=== PATIENT | male | born 1930 | race Caucasian/White ===

== ENCOUNTER 2017-10-04 14:50 | Emergency (ER) | payer OTHER ==
[~2017-10-04] VITALS: Ht 177.8 cm; Wt 84.8 kg
[2017-10-04] MEDS ORDERED: NORCO 5-325 TA1 EACH PO (15:05)
[2017-10-04] MEDS ORDERED: TYLENOL325 MG PO (15:06)
[2017-10-04 15:23] LABS: ABSOLUTE BASOPHILS 0.1 thou/uL (0.0-0.2); ABSOLUTE LYMPHOCYTES 1.1 thou/uL (0.8-5.3); ABSOLUTE MONOCYTES 0.9 thou/uL (0.0-1.2); ABSOLUTE NEUTROPHILS 7.8 thou/uL (1.6-8.1); BASOPHILS 0.6 %; EOSINOPHILS 0.1 %; HEMATOCRIT 43.7 % (42.0-52.0); HEMOGLOBIN 14.9 gm/dL (14.0-18.0); LYMPHOCYTES 10.9 %; MCH 28.3 pg (26.0-34.0); MCHC 34.1 g/dL (28.0-37.0); MPV 8.3 fl. (7.2-11.1); NUCLEATED RBCS 0 /100WBC; PLATELET COUNT* 248 thou/uL (150-400); POLYS 79.4 %; RBC 5.26 mil/uL (4.50-6.00); RDW-CV 14.5 % (10.5-14.5); WBC 9.8 thou/uL (4.0-11.0)
[2017-10-04 15:33] LABS: URINE BILIRUBIN NEGATIVE (Negative); URINE BLOOD NEGATIVE (Negative); URINE CLARITY CLEAR; URINE COLOR YELLOW; URINE GLUCOSE-RANDOM 3+ (Negative); URINE KETONES NEGATIVE (Negative); URINE LEUKOCYTES-REFLEX NEGATIVE (Negative); URINE NITRITE-REFLEX NEGATIVE (Negative); URINE PROTEIN 2+ (Negative); URINE SPECIFIC GRAVITY 1.025 (1.005-1.030); URINE UROBILINOGEN 0.2 E.U./dl (0.2-1.0)
[2017-10-04 15:53] LABS: BACTERIA-REFLEX None Seen /HPF (None Seen); CRYSTALS None Seen /LPF (None Seen); HYALINE CASTS 0-3 Few /LPF (None Seen); MUCUS None Seen strn/LPF (None Seen); SQUAMOUS NONE SEEN /LPF (0-3); URINE RBC None Seen /HPF (0-2)
[2017-10-04 15:54] LABS: URINE WBC-REFLEX 0-5 Rare /HPF (0-5)
[2017-10-04 15:59] LABS: CALCIUM 8.7 mg/dL (8.5-10.1); CREATININE 1.1 mg/dL (0.6-1.3); POTASSIUM 3.6 mmol/L (3.5-5.1)
[2017-10-04 16:03] LABS: ALBUMIN 3.5 g/dL (3.4-5.0); TOTAL BILIRUBIN 0.4 mg/dL (<0.1-1.0)
[2017-10-04 18:03] VITALS: BP 196/91
== END 2017-10-04 18:11 | disposition short-term general hospital (02) ==
LOC: M.ERS 14:50
PROVIDERS: Nurse Practitioner Family
DX: R20.0 Anesthesia of skin (principal); R53.1 Weakness; G89.29 Other chronic pain; M54.5 Low back pain; E11.9 Type 2 diabetes mellitus without complications; I10 Essential (primary) hypertension; Z90.49 Acquired absence of other specified parts of digestive tract

== ENCOUNTER 2019-02-06 10:09 | Emergency (ER) | payer OTHER ==
[~2019-02-06] VITALS: Ht 177.8 cm; Wt 97.5 kg
[~2019-02-06 10:09] MED LIST: NORCO 5-325 TA1 EACH PO; TYLENOL325 MG PO
[2019-02-06] MEDS ORDERED: NOVOLOG FL100 UNIT/M SUBQ (10:22)
[2019-02-06] MEDS ORDERED: LANTUS SOL100 UNIT/1 SUBQ (10:22)
[2019-02-06] MEDS ORDERED: SPIRONOLACT/HCT1 TA1 PO (10:22)
[2019-02-06] MEDS ORDERED: GABAPENTIN100 MG PO (10:23)
[2019-02-06] MEDS ORDERED: NEURONTIN300 MG PO (10:23)
[2019-02-06 11:17] LABS: URINE BILIRUBIN NEGATIVE (Negative); URINE BLOOD NEGATIVE (Negative); URINE CLARITY CLEAR; URINE COLOR YELLOW; URINE GLUCOSE-RANDOM 3+ (Negative); URINE KETONES NEGATIVE (Negative); URINE LEUKOCYTES-REFLEX NEGATIVE (Negative); URINE NITRITE-REFLEX NEGATIVE (Negative); URINE PROTEIN NEGATIVE (Negative); URINE SPECIFIC GRAVITY >= 1.030 (1.005-1.030); URINE UROBILINOGEN 0.2 E.U./dl (0.2-1.0)
[2019-02-06 11:20] LABS: ABSOLUTE BASOPHILS 0.1 thou/uL (0.0-0.2); ABSOLUTE EOSINOPHILS 0.1 thou/uL (0.0-0.7); ABSOLUTE LYMPHOCYTES 1.7 thou/uL (0.8-5.3); ABSOLUTE MONOCYTES 0.6 thou/uL (0.0-1.2); ABSOLUTE NEUTROPHILS 5.1 thou/uL (1.6-8.1); BASOPHILS 0.7 %; EOSINOPHILS 1.8 %; HEMATOCRIT 44.7 % (42.0-52.0); HEMOGLOBIN 15.5 gm/dL (14.0-18.0); LYMPHOCYTES 22.1 %; MCH 28.5 pg (26.0-34.0); MCHC 34.8 g/dL (28.0-37.0); MCV 81.8 fL (80.0-100.0); MONOCYTES 7.4 %; MPV 7.8 fl. (7.2-11.1); NUCLEATED RBCS 0 /100WBC; PLATELET COUNT* 286 thou/uL (150-400); RBC 5.46 mil/uL (4.50-6.00); RDW-CV 14.8 % (10.5-14.5); WBC 7.5 thou/uL (4.0-11.0)
[2019-02-06 11:38] LABS: CREATININE 1.2 mg/dL (0.6-1.3); POTASSIUM 3.9 mmol/L (3.5-5.1)
[2019-02-06 11:42] LABS: ALBUMIN 3.6 g/dL (3.4-5.0); TOTAL BILIRUBIN 0.5 mg/dL (<0.1-1.0); TOTAL PROTEIN 7.6 g/dL (6.4-8.2)
--- NOTE | 2019-02-06 14:16 | EKG ---
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
[2019-02-06] MEDS ORDERED: MIRALAX119 GM PO (14:28)
[2019-02-06] MEDS ORDERED: COLACE100 MG PO (14:28)
[2019-02-06] MEDS ORDERED: FLEET ENEMA133 ML RECTAL (14:33)
[2019-02-06 14:42] VITALS: BP 146/68
== END 2019-02-06 14:43 | disposition home or self-care (01) ==
LOC: M.ERS 10:09
PROVIDERS: Nurse Practitioner Family
DX: K56.41 Fecal impaction (principal); I10 Essential (primary) hypertension; E11.40 Type 2 diabetes mellitus with diabetic neuropathy, unspecified; M54.9 Dorsalgia, unspecified; G89.29 Other chronic pain; Z90.49 Acquired absence of other specified parts of digestive tract; Z96.651 Presence of right artificial knee joint

== ENCOUNTER 2019-10-31 16:17 | Observation (INO) | payer OTHER ==
[~2019-10-31] VITALS: Ht 177.8 cm; Wt 86.6 kg
--- NOTE | ~2019-10-31 | EMS ---
[facility] [address] [place] [address] EMS Patient Care Report Name: MINE QUESADA Room: [address] Marci#: [id number] Admission: 10/31/19 Attend Phys: Valentin Garcia Discharge: Date of : 32 Report #: [id number] THIS REPORT FOR: //name// Report Transmitted: 10/31/2019 18:53 EMS Care Summary [facility] Incident 20-0735 @ 10/31/2019 15:27 Incident Location [address] [place] [address] Patient HOMER SANGITA Male, 89 Years 1930 Patient Address [address] [place] [address] Patient History Dementia,Neuropathy,Type 1 Diabetes, Patient Allergies No known allergies, Patient Medications Gabapentin, Metformin, Spironolactone, Novolog, Lantus, Chief Complaint Constipation/Pain Disposition Transported No Lights/[place] Dispatch Reason Sick Person Transported To [facility] Narrative Engine 2 and Med 1 were dispatched for a [age] year-old male c/o constipation and possible sepsis. Upon arrival the patient's son in law met us at the door. He reported that it is unknown how long the patient has been in this condition and that the patient has dementia. He believes he is having pain [address] [address] EMS Patient Care Report Name: MINE QUESADA Room: [address] Marci#: [id number] Admission: 10/31/19 Attend Phys: Valentin Garcia Discharge: Date of : 32 Report #: [id number] due to constipation. He led us into the house. The house smelled like urine, there was clutter on the counters. The patient was in the back bedroom sitting on the edge of his bed and was moaning in pain. I asked the patient where are you hurting at? The patient yelled," My asshole!" I palpated the patient's abdomen it was mildly distended in the lower quadrants, I palpated his back and it was not tender. Patient had a strong, rapid, regular pulse and felt febrile to the touch. Patient's vitals were obtained and his temperature was 101.0 degrees Fahrenheit. Patient's medication list was obtained from family. Patient was assisted to the stretcher and secured via the seatbelts and moved into the ambulance without incident. In the ambulance, patient was placed on the radiation monitor and a 12 lead EKG was obtained. It shown NSR with no ectopy noted. A Saline Lock was obtained in the patient's left AC with a 20 GA IV catheter. A blood glucose was obtained with a reading of 255 mg/dL. Patient was very anxious and agitated and was moving all around c/o pain. Patient was given 100 mcg of Fentanyl via IV to help with the pain. The medication eased the patient's pain some and calmed him down. Hospital report was given via radio with no questions or orders received or requested. Med 1 arrived at the hospital. Patient was moved into the ER via stretcher without incident to room 16. Patient care was transferred to ER staff. Med 1 returned back into service. [id number] KShook Initial Vitals @16:02R: 20,GCS: 13,Glucose: 232, @15:46P: 94,BP: 148/70,SpO2: 91, @15:47 @16:03P: 88, @16:08P: 85, @16:09P: 87,BP: 145/65,SpO2: 92, @15:48P: 111, @15:57P: 94,BP: 108/63, @15:53P: 99, @16:08P: 87,BP: 152/77,SpO2: 90, @15:58P: 90, Assessments @15:50MENTAL:Confused,Person Oriented,Place Oriented,SKIN:Hot,HEENT:Head/Face: Drainage,LUNG SOUNDS:ABDOMEN:PELVIS//GI:Pelvis GUOther,EXTREMITIES:Left Arm: No Abnormalities,Right Arm: No Abnormalities,Left Leg: No Abnormalities,Right Leg: No Abnormalities,PULSE:Brachial: 3+ Bounding,NEURO:No Abnormalities, [place] [address] EMS Patient Care Report Name: MINE QUESADA Room: [address] Cielo Covarrubias#: [id number] Admission: 10/31/19 Attend Phys: Valentin Garcia Discharge: Date of : 34 Report #: [id number] Impression Hypovolemia Procedures @15:50Normal Saline (.9% NaCl) 10cc (20 ga) Site: Antecubital-LeftResponse: UnchangedSucceeded@15:53Fentanyl - 100 Micrograms (mcg) - Intravenous (IV)Response: Improved@15:4712-Lead ECG Timeline 15:27,Call Received 15:27,Dispatched 15:27,En Route 15:32,On Scene 15:33,At Patient 15:46,BP: 148/70 M,PULSE: 94,RR: R,SPO2: 91 Ox,ETCO2: ,BG: ,PAIN: ,GCS: , 15:47,12-Lead ECG, 15:47,BP: / M,PULSE: ,RR: R,SPO2: Ox,ETCO2: ,BG: ,PAIN: ,GCS: , 15:48,BP: / M,PULSE: 111,RR: R,SPO2: Ox,ETCO2: ,BG: ,PAIN: ,GCS: , 15:50,Normal Saline (.9% NaCl) 10cc 20 ga Site: Antecubital-Left,Response: UnchangedSucceeded, 15:53,Depart Scene 15:53,Fentanyl - 100 Micrograms (mcg) - Intravenous (IV),Response: Improved 15:53,BP: / M,PULSE: 99,RR: R,SPO2: Ox,ETCO2: ,BG: ,PAIN: ,GCS: , 15:57,BP: 108/63 M,PULSE: 94,RR: R,SPO2: Ox,ETCO2: ,BG: ,PAIN: ,GCS: , 15:58,BP: / M,PULSE: 90,RR: R,SPO2: Ox,ETCO2: ,BG: ,PAIN: ,GCS: , 16:02,BP: / M,PULSE: ,RR: 20 R,SPO2: Ox,ETCO2: ,B,PAIN: ,GCS: 13, 16:03,BP: / M,PULSE: 88,RR: R,SPO2: Ox,ETCO2: ,BG: ,PAIN: ,GCS: , 16:08,BP: / M,PULSE: 85,RR: R,SPO2: Ox,ETCO2: ,BG: ,PAIN: ,GCS: , 16:08,BP: 152/77 M,PULSE: 87,RR: R,SPO2: 90 Ox,ETCO2: ,BG: ,PAIN: ,GCS: , 16:09,BP: 145/65 M,PULSE: 87,RR: R,SPO2: 92 Ox,ETCO2: ,BG: ,PAIN: ,GCS: , 16:14,At Destination 16:14,Call Closed 19:46,In District Disclaimer v1.1 Copyright 2020 [employer] This EMS Care Summary contains data elements from the applicable legal record (which may be displayed differently). It is designed to provide pertinent information for the following purposes: continuity of care, clinical quality, and state data reporting. The complete legal record is available to ED staff and administrators of the receiving hospital in ES's Patient Tracker. All data is provided "as is."
[~2019-10-31 16:17] MED LIST changes: +COLACE100 MG PO; +FLEET ENEMA133 ML RECTAL; +GABAPENTIN100 MG PO; +LANTUS SOL100 UNIT/1 SUBQ; +MIRALAX119 GM PO; +NEURONTIN300 MG PO; +NOVOLOG FL100 UNIT/M SUBQ; +SPIRONOLACT/HCT1 TA1 PO
[2019-10-31 16:22] VITALS: BP 146/62
[2019-10-31 17:22] LABS: ABSOLUTE BASOPHILS 0.1 thou/uL (0.0-0.2); ABSOLUTE EOSINOPHILS 0.2 thou/uL (0.0-0.7); ABSOLUTE LYMPHOCYTES 2.3 thou/uL (0.8-5.3); ABSOLUTE MONOCYTES 0.8 thou/uL (0.0-1.2); ABSOLUTE NEUTROPHILS 9.2 thou/uL (1.6-8.1); BASOPHILS 0.7 %; EOSINOPHILS 1.8 %; HEMATOCRIT 46.7 % (42.0-52.0); HEMOGLOBIN 15.8 gm/dL (14.0-18.0); LYMPHOCYTES 18.4 %; MCH 27.7 pg (26.0-34.0); MCHC 33.9 g/dL (28.0-37.0); MCV 81.7 fL (80.0-100.0); MONOCYTES 6.3 %; MPV 8.2 fl. (7.2-11.1); NUCLEATED RBCS 0 /100WBC; POLYS 72.8 %; RBC 5.71 mil/uL (4.50-6.00); RDW-CV 16.1 % (10.5-14.5); WBC 12.6 thou/uL (4.0-11.0)
[2019-10-31 17:32] LABS: CALCIUM 8.9 mg/dL (8.5-10.1); CREATININE 1.2 mg/dL (0.6-1.3); POTASSIUM 3.6 mmol/L (3.5-5.1)
[2019-10-31 17:37] LABS: ALBUMIN 3.4 g/dL (3.4-5.0); TOTAL BILIRUBIN 0.4 mg/dL (<0.1-1.0); TOTAL PROTEIN 7.5 g/dL (6.4-8.2)
[2019-10-31 17:58] LABS: PLATELET COUNT* 200 thou/uL (150-400)
[2019-10-31 20:02] VITALS: BP 127/43
[2019-10-31 20:20] VITALS: BP 164/66
[2019-11-01 00:53] VITALS: BP 164/66
[2019-11-01 07:40] VITALS: BP 131/56
--- NOTE | 2019-11-01 11:04 | EKG ---
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: CCD : 1930 Requested By: Yvetet Mcginnis Order Number: [id number] Akila MD: Zheng Trujillo Measurements Intervals [place] Rate: 81 P: 42 AR: 192 QRS: 13 QRSD: 86 T: 63 QT: 395 QTc: 459 Interpretive Statements Sinus rhythm Abnormal R-wave progression, early transition Compared to ECG 02/06/2019 11:26:32 No significant changes Electronically Signed On 11-01-2019 11:04:14 CDT by Zheng Trujillo [email or web address] <ELECTRONICALLY SIGNED> By: Zheng Trujillo MD, [facility] 11/01/19 1104 1627 1627 Zheng Trujillo MD, [facility] /EPI
[2019-11-01] MEDS ORDERED: MIRALAX17 GM PO (12:41)
[2019-11-01 14:03] VITALS: BP 131/56
== END 2019-11-01 14:38 | disposition home or self-care (01) ==
LOC: M.ERS 16:17 → M.TBA-ER 18:55 → M.ORTHSURG 18:55
PROVIDERS: Personal Emergency Response Attendant; ADMIT Internal Medicine; ATTEND Internal Medicine
DX: K62.5 Hemorrhage of anus and rectum (principal); K59.00 Constipation, unspecified; I10 Essential (primary) hypertension; H40.9 Unspecified glaucoma; L98.499 Non-pressure chronic ulcer of skin of other sites with unspecified severity; M54.9 Dorsalgia, unspecified; G89.29 Other chronic pain; E11.40 Type 2 diabetes mellitus with diabetic neuropathy, unspecified; K64.9 Unspecified hemorrhoids; Z87.891 Personal history of nicotine dependence; Z98.890 Other specified postprocedural states; Z79.4 Long term (current) use of insulin; Z79.899 Other long term (current) drug therapy; Z20.828 Contact with and (suspected) exposure to other viral communicable diseases

== ENCOUNTER 2020-05-29 12:52 | Emergency (ER) | payer OTHER ==
[~2020-05-29] VITALS: Ht 182.9 cm; Wt 108.9 kg
[~2020-05-29 12:52] MED LIST changes: +MIRALAX17 GM PO
[2020-05-29] MEDS ORDERED: KEFLEX500 M1 PO (13:31)
[2020-05-29] MEDS ORDERED: BACTRIM DS TAB1 EACH PO (13:31)
[2020-05-29 13:44] LABS: ABSOLUTE BASOPHILS 0.1 thou/uL (0.0-0.2); ABSOLUTE EOSINOPHILS 0.2 thou/uL (0.0-0.7); ABSOLUTE LYMPHOCYTES 1.9 thou/uL (0.8-5.3); ABSOLUTE MONOCYTES 0.5 thou/uL (0.0-1.2); ABSOLUTE NEUTROPHILS 4.8 thou/uL (1.6-8.1); BASOPHILS 1.2 %; EOSINOPHILS 2.3 %; HEMATOCRIT 43.9 % (42.0-52.0); HEMOGLOBIN 14.6 gm/dL (14.0-18.0); LYMPHOCYTES 24.9 %; MCH 27.5 pg (26.0-34.0); MCHC 33.3 g/dL (28.0-37.0); MCV 82.6 fL (80.0-100.0); MPV 7.3 fl. (7.2-11.1); NUCLEATED RBCS 0 /100WBC; PLATELET COUNT* 307 thou/uL (150-400); POLYS 64.6 %; RBC 5.31 mil/uL (4.50-6.00); RDW-CV 15.4 % (10.5-14.5); WBC 7.5 thou/uL (4.0-11.0)
[2020-05-29 13:53] LABS: CALCIUM 9.3 mg/dL (8.5-10.1); CREATININE 1.1 mg/dL (0.6-1.3); POTASSIUM 3.6 mmol/L (3.5-5.1)
[2020-05-29 13:58] LABS: ALBUMIN 3.4 g/dL (3.4-5.0); TOTAL BILIRUBIN 0.5 mg/dL (<0.1-1.0); TOTAL PROTEIN 7.4 g/dL (6.4-8.2)
[2020-05-29 14:27] VITALS: BP 131/61
== END 2020-05-29 14:28 | disposition home or self-care (01) ==
LOC: M.ERS 12:52
PROVIDERS: Family Medicine
DX: E11.621 Type 2 diabetes mellitus with foot ulcer (principal); E11.40 Type 2 diabetes mellitus with diabetic neuropathy, unspecified; L03.116 Cellulitis of left lower limb; E11.9 Type 2 diabetes mellitus without complications; I10 Essential (primary) hypertension; G89.29 Other chronic pain; Z79.4 Long term (current) use of insulin

== ENCOUNTER → 2020-06-03 | Outpatient (CLI) | payer OTHER ==
[~2020-06-03] MED LIST changes: +BACTRIM DS TAB1 EACH PO; +KEFLEX500 M1 PO
== END ==
LOC: M.WC 07:54
PROVIDERS: ATTEND Surgery
DX: E11.621 Type 2 diabetes mellitus with foot ulcer (principal); L97.522 Non-pressure chronic ulcer of other part of left foot with fat layer exposed; E11.43 Type 2 diabetes mellitus with diabetic autonomic (poly)neuropathy; R62.7 Adult failure to thrive; I10 Essential (primary) hypertension; E11.39 Type 2 diabetes mellitus with other diabetic ophthalmic complication; H42 Glaucoma in diseases classified elsewhere; G89.29 Other chronic pain; F41.9 Anxiety disorder, unspecified; Z90.49 Acquired absence of other specified parts of digestive tract; Z96.651 Presence of right artificial knee joint; Z79.4 Long term (current) use of insulin

== ENCOUNTER → 2020-06-09 | Outpatient (CLI) | payer OTHER | LOC: M.ULTRA 12:57 | PROVIDERS: ATTEND Surgery | DX: E11.621 Type 2 diabetes mellitus with foot ulcer (principal); E11.51 Type 2 diabetes mellitus with diabetic peripheral angiopathy without gangrene ==

== ENCOUNTER → 2020-06-10 | Outpatient (CLI) | payer OTHER | LOC: M.WC 08:42 | PROVIDERS: ATTEND Surgery | DX: E11.621 Type 2 diabetes mellitus with foot ulcer (principal); L97.522 Non-pressure chronic ulcer of other part of left foot with fat layer exposed; E11.43 Type 2 diabetes mellitus with diabetic autonomic (poly)neuropathy; E11.39 Type 2 diabetes mellitus with other diabetic ophthalmic complication; H42 Glaucoma in diseases classified elsewhere; R62.7 Adult failure to thrive; G89.29 Other chronic pain; I10 Essential (primary) hypertension; F41.9 Anxiety disorder, unspecified; Z79.4 Long term (current) use of insulin ==

== ENCOUNTER → 2020-06-17 | Outpatient (CLI) | payer OTHER | LOC: M.WC 08:38 | PROVIDERS: ATTEND Surgery | DX: E11.621 Type 2 diabetes mellitus with foot ulcer (principal); L97.522 Non-pressure chronic ulcer of other part of left foot with fat layer exposed; E11.43 Type 2 diabetes mellitus with diabetic autonomic (poly)neuropathy; E11.39 Type 2 diabetes mellitus with other diabetic ophthalmic complication; H42 Glaucoma in diseases classified elsewhere; R62.7 Adult failure to thrive; G89.29 Other chronic pain; I10 Essential (primary) hypertension; F41.9 Anxiety disorder, unspecified; Z79.4 Long term (current) use of insulin ==

== ENCOUNTER → 2020-06-24 | Outpatient (CLI) | payer OTHER | LOC: M.WC 08:54 | PROVIDERS: ATTEND Family Medicine | DX: E11.621 Type 2 diabetes mellitus with foot ulcer (principal); L97.522 Non-pressure chronic ulcer of other part of left foot with fat layer exposed; E11.43 Type 2 diabetes mellitus with diabetic autonomic (poly)neuropathy; E11.39 Type 2 diabetes mellitus with other diabetic ophthalmic complication; H42 Glaucoma in diseases classified elsewhere; R62.7 Adult failure to thrive; G89.29 Other chronic pain; I10 Essential (primary) hypertension; F41.9 Anxiety disorder, unspecified; Z79.4 Long term (current) use of insulin ==

== ENCOUNTER → 2020-07-01 | Outpatient (CLI) | payer OTHER | LOC: M.WC 09:30 | PROVIDERS: ATTEND Surgery | DX: E11.621 Type 2 diabetes mellitus with foot ulcer (principal); L97.522 Non-pressure chronic ulcer of other part of left foot with fat layer exposed; E11.43 Type 2 diabetes mellitus with diabetic autonomic (poly)neuropathy; E11.39 Type 2 diabetes mellitus with other diabetic ophthalmic complication; H42 Glaucoma in diseases classified elsewhere; R62.7 Adult failure to thrive; G89.29 Other chronic pain; I10 Essential (primary) hypertension; F41.9 Anxiety disorder, unspecified; Z79.4 Long term (current) use of insulin ==

== ENCOUNTER 2020-07-08 14:48 | Inpatient (IN) | payer OTHER ==
[~2020-07-08] VITALS: Ht 177.8 cm; Wt 92.1 kg
[2020-07-08 15:05] VITALS: BP 152/130
[2020-07-08] MEDS ORDERED: COLACE100 MG PO (15:09)
[2020-07-08] MEDS ORDERED: MIRALAX119 GM PO (15:09)
[2020-07-08] MEDS ORDERED: METFORMIN HCL500 M3 PO (15:10)
[2020-07-08 15:43] LABS: ABSOLUTE BASOPHILS 0.1 thou/uL (0.0-0.2); ABSOLUTE LYMPHOCYTES 1.2 thou/uL (0.8-5.3); ABSOLUTE MONOCYTES 0.7 thou/uL (0.0-1.2); ABSOLUTE NEUTROPHILS 9.5 thou/uL (1.6-8.1); BASOPHILS 0.5 %; EOSINOPHILS 0.3 %; HEMATOCRIT 44.9 % (42.0-52.0); LYMPHOCYTES 10.6 %; MCH 27.5 pg (26.0-34.0); MCHC 33.5 g/dL (28.0-37.0); MCV 82.2 fL (80.0-100.0); MONOCYTES 6.2 %; MPV 7.3 fl. (7.2-11.1); NUCLEATED RBCS 0 /100WBC; PLATELET COUNT* 397 thou/uL (150-400); POLYS 82.4 %; RBC 5.46 mil/uL (4.50-6.00); RDW-CV 15.9 % (10.5-14.5); WBC 11.5 thou/uL (4.0-11.0)
[2020-07-08 15:52] LABS: CALCIUM 9.3 mg/dL (8.5-10.1); CREATININE 1.2 mg/dL (0.6-1.3); POTASSIUM 3.8 mmol/L (3.5-5.1)
[2020-07-08 15:56] LABS: APTT 28.2 Seconds (25.0-31.3); PROTIME 10.9 Seconds (9.20-11.50)
[2020-07-08 15:57] LABS: ALBUMIN 3.2 g/dL (3.4-5.0); TOTAL BILIRUBIN 0.5 mg/dL (<0.1-1.0); TOTAL PROTEIN 8.2 g/dL (6.4-8.2)
[2020-07-08 18:21] VITALS: BP 155/69
[2020-07-08 20:00] VITALS: BP 158/56
[2020-07-09 04:00] VITALS: BP 105/73
[2020-07-09 04:53] LABS: HEMATOCRIT 40.3 % (42.0-52.0); HEMOGLOBIN 13.5 gm/dL (14.0-18.0); MCH 27.4 pg (26.0-34.0); MCHC 33.5 g/dL (28.0-37.0); MCV 81.8 fL (80.0-100.0); MPV 7.2 fl. (7.2-11.1); RBC 4.92 mil/uL (4.50-6.00); RDW-CV 15.5 % (10.5-14.5); WBC 10.3 thou/uL (4.0-11.0)
[2020-07-09 05:08] LABS: CALCIUM 8.6 mg/dL (8.5-10.1); POTASSIUM 3.3 mmol/L (3.5-5.1)
--- NOTE | 2020-07-09 06:32 | NUR ---
PATIENT ARRIVED ON FLOOR BEFORE SHIFT CHANGE. PATIENT ADMISSION HISTORY AND ASSESSMENT WAS COMPLETED CHARTED. IV ANTIBITOICS WERE GIVEN ORDERED. PATIENT COMPLAINED OF CHEST PAIN AT ABOUT 2245. EKG WAS DONE ER DOCTOR LOOKED OVER IT NOTHING OF CONCERN NOTED CHEST PAIN RESOLVED. DR. BELTRE WAS NOTIFIED NO NEW ORDERS WERE RECEIVED. WILL CONTINUE TO MONITOR.
[2020-07-09 08:20] VITALS: BP 123/56
--- NOTE | 2020-07-09 09:36 | EKG ---
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: ALEIDA : 1930 Requested By: Jonh Thorne Order Number: [id number] MD: Zheng Trujillo Measurements Intervals [place] Rate: 79 P: 29 AL: 183 QRS: 5 QRSD: 86 T: 97 QT: 385 QTc: 442 Interpretive Statements Sinus rhythm early repolarization Baseline wander in lead(s) V1 Compared to ECG 10/31/2019 16:27:04 no change Electronically Signed On 07-09-2020 9:36:27 CDT by Zheng Trujillo [email or web address] <ELECTRONICALLY SIGNED> By: Zheng Trujillo MD, [facility] 07/09/20 0936 1558 1558 Zheng Trujillo MD, [facility] /EPI
--- NOTE | 2020-07-09 11:04 | EKG ---
[place] [address] ELECTROCARDIOGRAM REPORT Name: MINE QUESADA Room: [address] ADM IN R.#: [id number] Admission: 07/08/20 Attend Phys: Nilesh Patel Discharge: Date of : 34 Date of Service: 07/08/20 2254 Report #: [id number] THIS REPORT FOR: //name// [facility] Test Date: 2020-07-08 Test Time: 22:54:52 Pat Name: MINE QUESADA Department: Room: [address] Gender: M Seed Specialist: [id number] : 1930 Requested By: Anne Carson Order Number: [id number] Akila MD: Zheng Trujillo Measurements Intervals [place] Rate: 76 P: 29 MT: 194 QRS: 8 QRSD: 107 T: 88 QT: 415 QTc: 467 Interpretive Statements Sinus rhythm RSR' in V1 or V2, right VCD or RVH Nonspecific T abnormalities, lateral leads Compared to ECG 07/08/2020 15:58:44 T-wave abnormality now present Electronically Signed On 07-09-2020 11:04:17 CDT by Zheng Trujillo [email or web address] <ELECTRONICALLY SIGNED> By: Zheng Turjillo MD, [facility] 07/09/20 1104 2254 2254 Zheng Trujillo MD, [facility] /EPI
--- NOTE | 2020-07-09 11:05 | NUR ---
WOUND NURSE: PATIENT SEEN TO ADDRESS DIABETIC FOOT ULCERS ON LEFT FOOT ONLY. 1ST METARSAL MEASURES 4.0 X 3.0 CM. CONTAINS BLACKENED ESCHAR IN WOUND BED, NO ACTIVE DRAINAGE. LOOSE PEELING SKIN ALONG THE INFERIOR EDGE OF THE WOUND. 2ND TOE ON THE DORSAL ASPECT CONTAINS A SMALL LIGHT ROCHA STABLE ESCHAR. CLEANSED FOOT WITH SOAP AND WATER, RINSED WITH WATER, THEN PATTED DRY. OBTAINED AEROBIC AND ANEROBIC SWAB C&S PER PROTOCAL FROM 1ST MET WOUND. SWABBED EACH WOUND WITH BETADINE SWAB, LET DRY, THEN COVERED WITH 4X4'S UNDER ABD, THEN WRAPPED WITH KERLEX ROLL GAUZE, THEN SECURED WITH TAPE. PATIENT INSTRUCTED ON REPORTABLE SIGNS AND SYMPTOMS, NUTRITIONAL NEEDS, OFFLOADING WOUND. SUSPECT FOLLOWING TEACHING WILL BE NEEDED; HOWEVER, PATIENT STATES HE UNDERSTANDS. PATIENT'S GRAND-DAUGHTER, CHEL, WHO IS A NURSE, WAS PRESENT. I SPOKE WITH DR. FATEMEH MD AND HE APPROVED POT.
--- NOTE | 2020-07-09 12:56 | NUR ---
Pt is A&O. Resides at home with son. Pt is fairly independent, takes spongebaths, bathroom door frame is too narrow for Pt to fit through with his scooter. Pt primarily uses his scooter, also has a wc and a walker. Pt is current with [facility]. Hx of skilled at [place]. Pt to have MRI today. Pt may need surgery with podiatry. Radiology following. Therapies ordered. Family fairly confident that Pt may need skilled at dc, CM left SNF list in room with grandtr, family to discuss facility choice with Pt. Pt will be inpt for several more days. Following.
--- NOTE | 2020-07-09 13:25 | NUR ---
Nutrition: Pt admitted with infected diabetic ulcer on foot, consult for DM ws. I saw pt had eaten most of his lunch tray. CHO controlled diet. H/o DM, OBE, neuropathy. Lt foot wrapped with wounds. Meds: insulin, gabapentin, HCTZ. BG 140, albumin 3.2. Pt denied any nutrition questions. He was trying to get out of bed to go to the bathroom. I called his nurse to help him to bathroom. GOALS: continued good meal intake, tight BG control. No supplements at this time. Mild risk.
--- NOTE | 2020-07-09 15:17 | NUR ---
RIGHT BASILIC VESSEL ACCESSED FOR 4 PERUVIAN SINGLE LUMEN PICC. LINE PRE-TRIMMED TO 39CM AND ADVANCED TO THE ZERO DANNA WITH NO RESISTANCE MET. UPPER ARM CIRCUMFERENCE ABOVE INSERTION SITE=13". SHERLOCK MAGNET AND 3CG CONFIRMATION OF TIP TERMINATION AT THE CAVOATRIAL JUNCTION APPRECIATED. GUIDEWIRE REMOVED, LINE FLUSHED AND INSERTION SITE DRESSED. REPORT GIVEN TO JARRET RESENDIZ.
[2020-07-09 16:00] VITALS: BP 116/52
--- NOTE | 2020-07-09 18:53 | NUR ---
Pt reamined A&O x4 for entire shift. Pt denies any pain. Pt pleasant with staff. Vital signs stable. Meds given per MAR. Hourly rounding completed. Pt's granddaughter at bedside for part of the day helping with tasks. Pt tolerated MRI today ok with meds on board. Bed in low position, call light within reach.
[2020-07-09 20:00] VITALS: BP 129/57
[2020-07-10 07:56] LABS: ABSOLUTE EOSINOPHILS 0.3 thou/uL (0.0-0.7); ABSOLUTE LYMPHOCYTES 1.7 thou/uL (0.8-5.3); ABSOLUTE MONOCYTES 0.7 thou/uL (0.0-1.2); ABSOLUTE NEUTROPHILS 7.1 thou/uL (1.6-8.1); BASOPHILS 0.5 %; EOSINOPHILS 2.9 %; HEMOGLOBIN 13.1 gm/dL (14.0-18.0); LYMPHOCYTES 16.9 %; MCH 26.8 pg (26.0-34.0); MCHC 32.6 g/dL (28.0-37.0); MONOCYTES 7.5 %; MPV 7.1 fl. (7.2-11.1); NUCLEATED RBCS 0 /100WBC; PLATELET COUNT* 342 thou/uL (150-400); POLYS 72.2 %; RBC 4.88 mil/uL (4.50-6.00); RDW-CV 15.4 % (10.5-14.5); WBC 9.9 thou/uL (4.0-11.0)
[2020-07-10 08:03] VITALS: BP 125/59
[2020-07-10 08:07] LABS: ALBUMIN 2.6 g/dL (3.4-5.0); CALCIUM 8.3 mg/dL (8.5-10.1); POTASSIUM 3.2 mmol/L (3.5-5.1); TOTAL BILIRUBIN 0.4 mg/dL (<0.1-1.0); TOTAL PROTEIN 6.8 g/dL (6.4-8.2)
[2020-07-10 08:10] VITALS: BP 125/59
--- NOTE | 2020-07-10 15:38 | NUR ---
Therapies ordered. Pt will likely need skilled at dc. CM to contact Pt's son to discuss choice.
[2020-07-10 16:41] VITALS: BP 108/47
--- NOTE | 2020-07-10 17:55 | NUR ---
PT A&OX3-4, FORGETFUL AT TIMES. VSS. PICC TO MIRZA PATENT, DRESSING C/D/I. FLUIDS INFUSING. VANC TROUGH DRAWN FROM PICC APPROX 1530 THIS AFTERNOON, VANC DOSE REMAINS SAME PER PHARMACY. ACCUCHECKS, SLIDING SCALE INSULIN ADMINISTERED INDICATED. PT REMAINS CONTINENT OF B/B. DR SAM SAW PT THIS EVENING AND CHANGED DRESSING TO L FOOT. NO SURGERY PLANNED AT THIS TIME. PT FAMILY UPDATED BY DR SAM. PT UP TO RECLINER THIS SHIFT. PT RESTS IN ROOM WITH CALL LIGHT IN REACH. FALL PRECAUTIONS IN PLACE. WILL CONTINUE TO MONITOR.
[2020-07-10 20:30] VITALS: BP 132/56
[2020-07-11 04:00] LABS: ABSOLUTE BASOPHILS 0.1 thou/uL (0.0-0.2); ABSOLUTE EOSINOPHILS 0.4 thou/uL (0.0-0.7); ABSOLUTE LYMPHOCYTES 1.8 thou/uL (0.8-5.3); ABSOLUTE MONOCYTES 0.6 thou/uL (0.0-1.2); ABSOLUTE NEUTROPHILS 6.2 thou/uL (1.6-8.1); BASOPHILS 0.9 %; EOSINOPHILS 4.1 %; HEMATOCRIT 39.3 % (42.0-52.0); HEMOGLOBIN 13.2 gm/dL (14.0-18.0); LYMPHOCYTES 19.4 %; MCH 27.6 pg (26.0-34.0); MCHC 33.7 g/dL (28.0-37.0); MCV 81.9 fL (80.0-100.0); MONOCYTES 6.9 %; MPV 7.1 fl. (7.2-11.1); NUCLEATED RBCS 0 /100WBC; PLATELET COUNT* 329 thou/uL (150-400); POLYS 68.7 %; RBC 4.81 mil/uL (4.50-6.00); RDW-CV 15.3 % (10.5-14.5)
[2020-07-11 04:35] LABS: ALBUMIN 2.6 g/dL (3.4-5.0); CALCIUM 8.5 mg/dL (8.5-10.1); POTASSIUM 3.2 mmol/L (3.5-5.1); TOTAL BILIRUBIN 0.5 mg/dL (<0.1-1.0); TOTAL PROTEIN 6.9 g/dL (6.4-8.2)
--- NOTE | 2020-07-11 05:07 | NUR ---
PT GRAND DTR HERE FOR AWHILE AT START OF SHIFT, ATTENTIVE TO NEEDS. NO QUESTIONS AT THAT TIME REGARDING PLAN OF CARE. L FOOT DRSG CDI TO DIABETIC FOOT ULCER. PT CO PAIN WITH MOVEMENT, UP TO USE URINAL WITH ASSISTANCE. MIRZA SL PICC SL, ABX GIVEN ORDERED. HS ACCUCHECK 231, INSULINS GIVEN ORDERED WITH SNACK. AM LABS DRAWN. RECIEVING PO PAIN MED AND ABLE TO SLEEP WELL AFTER POSITIONED UP IN RECLINER AT HS PER HIS REQUEST, BLE ELEVATED. TAKES PILLS WHOLE WITH WATER. BED AND CHAIR ALARM INDICATED. CM FOLLOWING FOR DISCHARGE PLAN. CALL LITE IN EASY REACH.
[2020-07-11 07:50] VITALS: BP 97/64
[2020-07-11 16:00] VITALS: BP 129/56
--- NOTE | 2020-07-11 16:55 | NUR ---
PT A&OX4 VSS. PT UP TO RECLINER. PT ACCUCHECK, SLIDING SCALE INSULIN ADMINISTERED INDICATED. PT REMAINS CONTINENT OF B/B. PT REPORTS IMPROVED PAIN CONTROL THIS SHIFT. SINGLE LUMEN PICC TO MIRZA PATENT, DRESSING C/D/I. PT FAMILY UPDATED AT BEDSIDE. PT RESTS IN ROOM WITH CALL IGHT IN REACH, WILL CONTINUE TO MONITOR
[2020-07-11 20:10] VITALS: BP 139/60
--- NOTE | 2020-07-12 04:49 | NUR ---
PATIENT HAS REMAINED ALERT AND ORIENTED X 4 THROUGHOUT THE SHIFT WITH FORGETFULNESS. CALL LIGHT IN REACH AND FALL PRECAUTIONS IN PLACE. DRESSING LEFT FOOT CHANGED BY DAYSHIFT NURSE EARLY EVENING. POST-OP SHOE WAS OBTAINED FOR TRANSFERS. VITAL SIGNS STABLE. MEDICATED FOR PAIN X 1. ANTIBIOTICS PER ORDER. CONTINUE TO MONITOR.
[2020-07-12 05:17] LABS: ABSOLUTE BASOPHILS 0.1 thou/uL (0.0-0.2); ABSOLUTE EOSINOPHILS 0.3 thou/uL (0.0-0.7); ABSOLUTE LYMPHOCYTES 1.7 thou/uL (0.8-5.3); ABSOLUTE MONOCYTES 0.6 thou/uL (0.0-1.2); BASOPHILS 1.1 %; EOSINOPHILS 4.3 %; HEMATOCRIT 37.7 % (42.0-52.0); HEMOGLOBIN 12.7 gm/dL (14.0-18.0); LYMPHOCYTES 21.9 %; MCH 27.2 pg (26.0-34.0); MCHC 33.8 g/dL (28.0-37.0); MCV 80.5 fL (80.0-100.0); MONOCYTES 7.6 %; MPV 6.9 fl. (7.2-11.1); NUCLEATED RBCS 0 /100WBC; PLATELET COUNT* 312 thou/uL (150-400); POLYS 65.1 %; RBC 4.68 mil/uL (4.50-6.00); RDW-CV 15.7 % (10.5-14.5); WBC 7.7 thou/uL (4.0-11.0)
[2020-07-12 05:39] LABS: ALBUMIN 2.5 g/dL (3.4-5.0); CALCIUM 8.2 mg/dL (8.5-10.1); POTASSIUM 3.2 mmol/L (3.5-5.1); TOTAL BILIRUBIN 0.3 mg/dL (<0.1-1.0); TOTAL PROTEIN 6.6 g/dL (6.4-8.2)
[2020-07-12 07:30] VITALS: BP 139/54
[2020-07-12 15:59] VITALS: BP 155/68
--- NOTE | 2020-07-12 18:44 | NUR ---
PT A&OX3-4, FORGETFUL AT TIMES. VSS. PT UP TO RECLINER FOR MEALS. ACCUCHECKS, SLIDING SCALE INSULIN ADMINISTERED PER ORDERS. PT REMAINS ON ROOM AIR, SATS >95%. PT DECLINED PRN PAIN MEDICATION. PICC TO MIRZA HOROWITZ, DRESSING C/D/I. DRESSING TO L FOOT CHANGED AND PHOTO TO CHART. PT REMAINS CONTINENT OF B/B. POSSIBLE TO DC TO REHAB/SNF MONDAY. PT AND FAMILY UPDATED THIS SHIFT. PT RESTS IN BED WITH CALL LIGHT IN REACH. WILL CONTINUE TO MONITOR
[2020-07-12 19:45] VITALS: BP 148/64
--- NOTE | 2020-07-13 05:11 | NUR ---
PATIENT HAS REMAINED ALERT AND ORIENTED X 4 THROUGHOUT THE SHIFT AND RESTING QUIETLY ON HOURLY ROUNDS. DRESSING LEFT FOOT CLean AND DRY. ANTIBIOTICS/MEDS PER ORDER. VITAL SIGNS STABLE. UP WITH ONE, WALKER AND POST-OP SHOE LLE. FALL PRECAUTIONS IN PLACE. CONTINUE TO MONITOR.
[2020-07-13 07:55] VITALS: BP 138/59
[2020-07-13 08:38] LABS: ABSOLUTE BASOPHILS 0.1 thou/uL (0.0-0.2); ABSOLUTE EOSINOPHILS 0.3 thou/uL (0.0-0.7); ABSOLUTE LYMPHOCYTES 1.4 thou/uL (0.8-5.3); ABSOLUTE MONOCYTES 0.6 thou/uL (0.0-1.2); ABSOLUTE NEUTROPHILS 6.2 thou/uL (1.6-8.1); BASOPHILS 1.2 %; EOSINOPHILS 3.7 %; HEMOGLOBIN 13.6 gm/dL (14.0-18.0); LYMPHOCYTES 16.5 %; MCH 27.5 pg (26.0-34.0); MCHC 33.9 g/dL (28.0-37.0); MCV 81.1 fL (80.0-100.0); MPV 7.1 fl. (7.2-11.1); NUCLEATED RBCS 0 /100WBC; PLATELET COUNT* 336 thou/uL (150-400); POLYS 71.6 %; RBC 4.94 mil/uL (4.50-6.00); RDW-CV 15.5 % (10.5-14.5); WBC 8.7 thou/uL (4.0-11.0)
[2020-07-13 08:47] LABS: CALCIUM 8.9 mg/dL (8.5-10.1); CREATININE 0.9 mg/dL (0.6-1.3); POTASSIUM 3.7 mmol/L (3.5-5.1)
--- NOTE | 2020-07-13 14:07 | NUR ---
CM spoke with Pt's LUIS, referral faxed to [facility] per Pt/family request, await insurance auth, Pt medically stable to dc. Cm confirmed that Pt can take is scooter to skilled, but will not be able to use it until he is screened by their PT dept for safety.
[2020-07-13 17:23] VITALS: BP 135/58
--- NOTE | 2020-07-13 18:21 | NUR ---
PT A&OX4 FORGETFUL AT TIMES. VSS. POST OP SHOE FOR LEFT FOOT WHEN UP. PT REMAINS ON ROOM AIR, SAT >95%. PT UP TO RECLINER. PICC TO MIRZA PATENT, DRESSING C/D/I. PRN PAIN MEDICATION ADMINISTERED REQUESTED. FAMILY UPDATED AT BEDSIDE AND BY PHONE. PT WAITS FOR DC PLAN, IN PROGRESS WITH CASE MANAGAMENT. IV ABX ADMINISTERED ORDERED. PT RESTS IN ROOM WITH CALL IGHT IN REACH, WILL CONTINUE TO MONITOR.
[2020-07-13 20:30] VITALS: BP 146/68
--- NOTE | 2020-07-14 06:02 | NUR ---
PATIENT SLEPT MOST OF THE NIGHT. PICC LINE REMAINS IN PLACE SALINE LOCKED. PATIENT WAS GIVEN PAIN MEDICINE ONCE WITH GOOD RELIEF. DRESSING TO LEFT FOOT REMAINS INTACT. PATIENT COULD DC TO SKILLED TODAY. WILL CONTINUE TO MONITOR.
[2020-07-14 07:50] VITALS: BP 161/77
[2020-07-14] MEDS ORDERED: CIPRO500 M1 PO (08:32)
[2020-07-14] MEDS ORDERED: FLAGYL500 M1 PO ×2 (08:32→09:20)
[2020-07-14] MEDS ORDERED: ROCEPHIN 11 GM/1001 IV (12:58)
--- NOTE | 2020-07-14 14:16 | NUR ---
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 Updated nurse, nurse to update son if she sees him. Updated granddtr.
[2020-07-14 16:00] VITALS: BP 147/57
--- NOTE | 2020-07-14 18:49 | NUR ---
PT A&OX3-4, FORGETFUL AT TIMES. VSS. PICC TO MIRZA PATENT, DRESSING CHANGED THIS AFTERNOON. POST OP SHOE FOR AMBULATING. PT REMAINS ON ROOM AIR, SATS >95% PT UP TO RECLINER MUCH OF THIS SHIFT. FEET ELEVATED FOR PT COMFORT. PT CONTINENT OF B/B. PT AND FAMILY UPDATED THIS SHIFT. PT NPO AFTER MIDNIGHT FOR PROCEDURE IN THE AM. HOLD LOVENOX, HOLD AM INSULIN AND GIVE 1/2 OF EVENING LANTUS PER IR. PT RESTS IN ROOM WITH CALL LIGHT IN REACH, WILL CONTINUE TO MONITOR.
--- NOTE | 2020-07-15 05:02 | NUR ---
PATIENT SLEPT WELL DURING THIS SHIFT. PT USES CALL LIGHT APPROPRIATLEY FOR ASSISTANCE TO STAND AND USE URINAL. PT VOIDS YELLOW URINE. PT WITH SINGLE LUMAN RT UPPER LUMAN; UNABLE TO DRAW FROM LINE. PT IS ON ROOM AIR. LT FOOT WRAPPED AND ELEVATED ON PILLOW. FREQUENTLY USED ITEMS AND CALL LIGHT WITHIN REACH. SIDERAILS UPX2 AND BED ALARM ON. WILL CONTINUE TO MONITOR.
[2020-07-15 06:07] LABS: HEMATOCRIT 39.1 % (42.0-52.0); HEMOGLOBIN 13.1 gm/dL (14.0-18.0); MCH 27.3 pg (26.0-34.0); MCHC 33.5 g/dL (28.0-37.0); MCV 81.6 fL (80.0-100.0); MPV 6.8 fl. (7.2-11.1); RBC 4.8 mil/uL (4.50-6.00); RDW-CV 15.3 % (10.5-14.5); WBC 8.3 thou/uL (4.0-11.0)
[2020-07-15 06:14] LABS: PROTIME 10.8 Seconds (9.20-11.50)
[2020-07-15 06:51] LABS: CALCIUM 8.6 mg/dL (8.5-10.1); POTASSIUM 3.9 mmol/L (3.5-5.1)
[2020-07-15 08:10] VITALS: BP 150/68
[2020-07-15 08:40] VITALS: BP 147/57
--- NOTE | 2020-07-15 12:24 | NUR ---
Pt scheduled to dc to [facility] today, facility to scrap picker between 3-330pm. Faxed dc orders. Chart copied. Nurse report number is [phone]. Son aware of dispo plans.
[2020-07-15 13:00] VITALS: BP 137/58
--- NOTE | 2020-07-15 16:45 | NUR ---
PATIENT DISCHRAGED TO [facility]. REPORT CALLED TO XI. WOUND DRESSING CHANGED AND PHOTO PLACED IN CHART. PICC LINE IN PLACE FOR ANTIBIOTICS. PATIENT ASSISTED WITH GETTING DRESSED AND PACKING BELONGINGS. PATIENT LEFT BY WHEELCHAIR VAN AT THIS TIME.
== END 2020-07-15 16:45 | DRG 271 ==
LOC: M.TBA-ER 16:07 → M.ORTHSURG 16:07
PROVIDERS: Family Medicine; Internal Medicine; Radiology Diagnostic Radiology; ADMIT Internal Medicine; ATTEND Internal Medicine
PROC: 02HV33Z Insertion of Infusion Device into Superior Vena Cava, Percutaneous Approach (ICD-10-PCS; 2020-07-09)
PROC: B548ZZA Ultrasonography of Superior Vena Cava, Guidance (ICD-10-PCS; 2020-07-09)
PROC: B4151ZZ Fluoroscopy of Inferior Mesenteric Artery using Low Osmolar Contrast (ICD-10-PCS; principal; 2020-07-14)
PROC: B4141ZZ Fluoroscopy of Superior Mesenteric Artery using Low Osmolar Contrast (ICD-10-PCS; principal; 2020-07-14)
PROC: B41D1ZZ Fluoroscopy of Aorta and Bilateral Lower Extremity Arteries using Low Osmolar Contrast (ICD-10-PCS; principal; 2020-07-14)
PROC: 047Q3ZZ Dilation of Left Anterior Tibial Artery, Percutaneous Approach (ICD-10-PCS; 2020-07-15)
PROC: B4141ZZ Fluoroscopy of Superior Mesenteric Artery using Low Osmolar Contrast (ICD-10-PCS; 2020-07-15)
PROC: 06H03DZ Insertion of Intraluminal Device into Inferior Vena Cava, Percutaneous Approach (ICD-10-PCS; 2020-07-15)
PROC: B4151ZZ Fluoroscopy of Inferior Mesenteric Artery using Low Osmolar Contrast (ICD-10-PCS; 2020-07-15)
PROC: B41D1ZZ Fluoroscopy of Aorta and Bilateral Lower Extremity Arteries using Low Osmolar Contrast (ICD-10-PCS; 2020-07-15)
PROC: 04CL3ZZ Extirpation of Matter from Left Femoral Artery, Percutaneous Approach (ICD-10-PCS; 2020-07-15)
PROC: 047L3Z1 Dilation of Left Femoral Artery using Drug-Coated Balloon, Percutaneous Approach (ICD-10-PCS; 2020-07-15)
DX: E11.51 Type 2 diabetes mellitus with diabetic peripheral angiopathy without gangrene (principal); E87.1 Hypo-osmolality and hyponatremia; L97.429 Non-pressure chronic ulcer of left heel and midfoot with unspecified severity; L03.119 Cellulitis of unspecified part of limb; E11.621 Type 2 diabetes mellitus with foot ulcer; G89.29 Other chronic pain; E11.65 Type 2 diabetes mellitus with hyperglycemia; E11.40 Type 2 diabetes mellitus with diabetic neuropathy, unspecified; I70.202 Unspecified atherosclerosis of native arteries of extremities, left leg; E66.9 Obesity, unspecified; E87.6 Hypokalemia; I10 Essential (primary) hypertension; M54.9 Dorsalgia, unspecified; Z96.651 Presence of right artificial knee joint; Z20.822 Contact with and (suspected) exposure to COVID-19; Z90.49 Acquired absence of other specified parts of digestive tract; Z79.4 Long term (current) use of insulin; Z79.899 Other long term (current) drug therapy; Z68.29 Body mass index [BMI] 29.0-29.9, adult

== ENCOUNTER → 2020-07-29 | Outpatient (CLI) | payer OTHER ==
[~2020-07-29] MED LIST changes: +CIPRO500 M1 PO; +FLAGYL500 M1 PO; +METFORMIN HCL500 M3 PO; +ROCEPHIN 11 GM/1001 IV
== END ==
LOC: M.WC 13:23
PROVIDERS: ATTEND Podiatrist Foot & Ankle Surgery
DX: E11.621 Type 2 diabetes mellitus with foot ulcer (principal); L97.522 Non-pressure chronic ulcer of other part of left foot with fat layer exposed; E11.51 Type 2 diabetes mellitus with diabetic peripheral angiopathy without gangrene; E11.43 Type 2 diabetes mellitus with diabetic autonomic (poly)neuropathy; E11.39 Type 2 diabetes mellitus with other diabetic ophthalmic complication; H42 Glaucoma in diseases classified elsewhere; R62.7 Adult failure to thrive; G89.29 Other chronic pain; I10 Essential (primary) hypertension; F41.9 Anxiety disorder, unspecified; Z79.4 Long term (current) use of insulin

== ENCOUNTER 2020-08-05 12:09 | Inpatient (IN) | payer OTHER ==
[~2020-08-05] VITALS: Ht 177.8 cm; Wt 90.7 kg
--- NOTE | ~2020-08-05 | CON ---
[address] [address] CONSULTATION Name: MINE QUESADA Room: [address] IN M.R.#: [id number] Admission: 08/05/20 Attend Phys: Pratik Hurt MD Discharge: 08/12/20 Date of : 34 Report #: [id number] THIS REPORT FOR: cc: Christian Hamilton Ahmad W. DO Hanon, Daniel R. DPM ~ DOC #: [id number] Mane Burch DPM DATE OF CONSULTATION: 08/12/2020 CHIEF COMPLAINT AND HISTORY PRESENT ILLNESS: Followup of postoperative left foot for partial first ray resection for osteomyelitis. Surgical cultures grew Pseudomonas, MRSA, Enterococcus faecalis. He is on parenteral vancomycin and cefepime with good tolerance. He has a good appetite, relates low-grade foot pain. He has done some physical therapy for transfers and ambulation. Possible discharge back to fpc facility tomorrow. No new labs for review. PHYSICAL EXAMINATION: VITAL SIGNS: Temperature 97.8, pulse 76, respirations 19, blood pressure 118/49. EXTREMITIES: The incision is well approximated with a slightly decreased erythema. No signs of acute vascular embarrassment. The distal incision remains open with some maceration and necrosis of the skin margins. There is moderate serous drainage on his bandage. No underlying fluctuance or crepitation. No calf pain or popliteal adenopathy bilaterally. IMPRESSION: Osteomyelitis, status post first ray resection with type 2 diabetes mellitus/peripheral arterial disease. PLAN: The wound was cleansed with saline, dried, and packed with Aquacel Ag and covered with ABDs, Kerlix, Ricky. I will contact the laboratory regarding surgical pathology margins. RAFAELA Benz/YOUNG By: 1256 0023Dlinda Burch DPM /nt
--- NOTE | ~2020-08-05 | OP ---
[address] [address] OPERATIVE REPORT Name: MINE QUESADA Room: [address] IN M.R.#: [id number] Admission: 08/05/20 Attend Phys: Pratik Hurt MD Discharge: 08/12/20 Date of : 34 Report #: [id number] THIS REPORT FOR: cc: Christian Hamilton Ahmad W. DO Hanon, Daniel R. DPM ~ DOC #: [id number] Mane Burch DPM DATE OF SURGERY: 08/07/2020 SURGEON: Mane Burch DPM PREOPERATIVE DIAGNOSIS: Osteomyelitis, left distal first metatarsal and proximal phalanx with deep tissue infection. POSTOPERATIVE DIAGNOSIS: Osteomyelitis, left distal first metatarsal and proximal phalanx with deep tissue infection. PROCEDURES: 1. 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 2. Incision and drainage, left foot. 3. Skin flap, left foot. ANESTHESIA: MAC. INJECTABLES: A 30 mL of 0.5% Marcaine. HEMOSTASIS: Left ankle pneumatic tourniquet at 275 mmHg. SPECIMENS: Left first metatarsal and great toe with sesamoids. CULTURES. 1. Bone, left first metatarsal, aerobic/anaerobic. 2. Soft tissue, left foot, aerobic/anaerobic. ESTIMATED BLOOD LOSS: Roughly 2 mL. SUTURES: A 3-0 nylon. COMPLICATIONS: None. DESCRIPTION OF PROCEDURE: The patient was brought to the OR and placed on the table supine with induction of MAC anesthesia. A well-padded left ankle pneumatic tourniquet was placed and a local anesthetic block was performed. The extremity was prepped and draped aseptically. After exsanguination and inflation of the tourniquet, a #10 scalpel was used to [place] [address] OPERATIVE REPORT Name: MINE QUESADA Room: [address]#: [id number] Admission: 08/05/20 Attend Phys: Pratik Hurt MD Discharge: 08/12/20 Date of : 34 Report #: [id number] circumferential incision around the left great toe joint with the proximal incision along the distal first metatarsal. Layered anatomic dissection down to the bone and joint with disarticulation of the great toe at the MTP joint. Electrocautery was utilized for intraoperative hemostasis. The distal first metatarsal ____. I then removed the sesamoid apparatus and sent for pathology as well. I sent ____ portion of soft tissue for culture and I submitted a portion of distal first metatarsal ____ bone culture. I performed extensive intraoperative debridement of the surgical wound with Metzenbaum scissors and scalpel to remove redundant tendons and grossly infected soft tissue. I remodeled the skin to facilitate closure with the plantar medial flap, which I could mobilize a dorsal lateral. The wound was flushed with sterile saline and bacitracin irrigant and dried. The skin was then closed with a skin flap in the plantar medial to dorsal lateral aspect using 3-0 nylon in simple interrupted fashion. The tourniquet was deflated with normal vascular return to the extremity. There is no pallor or cyanosis with immediate capillary refill to the joyce-incision region. The foot was dressed with a sterile bandage. A small ____ was not able to be closed, which measured roughly 2 cm long. ____. I dressed the wound with Aquacel Ag, fluffs, ABDs, Kerlix gauze and Ricky bandage. The patient left the OR with no pain or complications noted. RAFAELA Benz/AZAM/[facility] By: 0901 0916Mane Burch DPM /willie
[2020-08-05 15:15] VITALS: BP 129/51
[2020-08-05 15:56] LABS: PROTIME 10.6 Seconds (9.20-11.50)
[2020-08-05 16:01] LABS: POTASSIUM 3.8 mmol/L (3.5-5.1)
[2020-08-05 16:06] LABS: ALBUMIN 3.3 g/dL (3.4-5.0); TOTAL BILIRUBIN 0.2 mg/dL (<0.1-1.0); TOTAL PROTEIN 6.6 g/dL (6.4-8.2)
[2020-08-05 16:10] LABS: ABSOLUTE EOSINOPHILS 0.3 thou/uL (0.0-0.7); ABSOLUTE LYMPHOCYTES 1.7 thou/uL (0.8-5.3); ABSOLUTE MONOCYTES 0.8 thou/uL (0.0-1.2); BASOPHILS 0.5 %; EOSINOPHILS 3.4 %; HEMATOCRIT 40.6 % (42.0-52.0); HEMOGLOBIN 13.5 gm/dL (14.0-18.0); LYMPHOCYTES 18.8 %; MCH 27.2 pg (26.0-34.0); MCHC 33.2 g/dL (28.0-37.0); MCV 81.8 fL (80.0-100.0); MONOCYTES 9.4 %; MPV 7.6 fl. (7.2-11.1); NUCLEATED RBCS 0 /100WBC; PLATELET COUNT* 376 thou/uL (150-400); POLYS 67.9 %; RBC 4.97 mil/uL (4.50-6.00); RDW-CV 16.6 % (10.5-14.5); WBC 8.8 thou/uL (4.0-11.0)
--- NOTE | 2020-08-05 20:09 | NUR ---
PT ADMITTED TODAY FOR WOUND ON LEFT FOOT. PT IS NON WEIGHT BEARING ON HIS LEFT FOOT. VSS AFEBRILE. WILL CONTINUE TO MONITOR PLAN OF CARE. PT HAS RIGHT UPPER ARM SINGLE LUMEN PICC.
[2020-08-06] VITALS: BP 117/61
[2020-08-06 05:01] LABS: ABSOLUTE BASOPHILS 0.1 thou/uL (0.0-0.2); ABSOLUTE EOSINOPHILS 0.2 thou/uL (0.0-0.7); ABSOLUTE LYMPHOCYTES 1.6 thou/uL (0.8-5.3); ABSOLUTE MONOCYTES 0.7 thou/uL (0.0-1.2); ABSOLUTE NEUTROPHILS 4.9 thou/uL (1.6-8.1); HEMATOCRIT 36.8 % (42.0-52.0); HEMOGLOBIN 12.3 gm/dL (14.0-18.0); LYMPHOCYTES 20.9 %; MCH 27.2 pg (26.0-34.0); MCHC 33.5 g/dL (28.0-37.0); MCV 81.2 fL (80.0-100.0); MONOCYTES 9.7 %; MPV 7.3 fl. (7.2-11.1); NUCLEATED RBCS 0 /100WBC; PLATELET COUNT* 310 thou/uL (150-400); POLYS 65.4 %; RBC 4.54 mil/uL (4.50-6.00); RDW-CV 16.1 % (10.5-14.5); WBC 7.5 thou/uL (4.0-11.0)
[2020-08-06 05:04] LABS: CALCIUM 8.4 mg/dL (8.5-10.1); CREATININE 0.9 mg/dL (0.6-1.3); POTASSIUM 3.8 mmol/L (3.5-5.1)
--- NOTE | 2020-08-06 05:37 | NUR ---
PATIENT SLEPT WELL DURING THIS SHIFT. PT GIVEN HYDROCODONE 1 TAB X1 FOR FOOT PAIN. PT WITH ANTIBIOTICS INFUSING PER DR ORDER IN LT UPPER PICC LINE. PT ABLE TO REPOSITION HIMSELF IN BED WITH SOME ASSISTANCE. LT FOOT ELEVATED AT TIMES. DRESSING CHANGED ON LT FOOT AND PICTURE ON CHART. PT VOIDS YELLOW URINE PER URINAL IN BED. PT IS ON ROOM AIR. MESSAGE LEFT FOR BERNARDINO, ELEMENTARY READING TUTOR TO LEAVE PT RED/ORANGE BARRIER CREAM FOR YEAST IN CHRISTIAN AREA. REGULAR BARRIER PROVIDED IN THE MEANTIME. PT DENIES NEEDS AT THIS TIME. FREQUENTLY USED ITEMS AND CALL LIGHT WITHIN REACH. SIDERAILS UPX3 AND BED ALARM ON. WILL CONTINUE TO MONITOR.
[2020-08-06 08:00] VITALS: BP 117/56
--- NOTE | 2020-08-06 09:03 | NUR ---
Nutrition: consult for "not eating well." No intake records. Pt has not received breakfast yet, but reports his appetite/intake as normal. Wt stable from 2020 admits. Pt denies acute nutrition concerns. BUN 24, albumin 3.3. Insulin and other meds reviewed. Plan possible amputation of toe. Pt willing to try Ensure Enlive daily. Assess at low nutrition risk.
--- NOTE | 2020-08-06 09:12 | NUR ---
Nutrition: Consult for "not eating well." No intake records, pt reports appetite/intake as normal. Denied acute nutrition concerns. Wt stable from 2020 admits. Albumin 3.3, BUN 24. Insulin, abx and other meds reviewed. Pt reports plan for possible amputation of toe. Willing to try supplement daily. RD to follow up on intake and further needs on/or before 08/12.
--- NOTE | 2020-08-06 14:06 | NUR ---
WOUND NURSE: PATIENT SEEN FOR DRESSING CHANGE TO LEFT FOOT 1ST METAARSAL DIABETIC WOUND. MEASURES 4.7 X 5.5 X 0.5 CM. CONTAINS YELLOW NECROTIC TISSUE ALONG WITH EXPOSED BONE, BLACKENED ESCHAR ALONG DISTAL WOUND EDGE, AND MINIMAL RED, NONGRANULATING TISSUE. THERE IS YELLOW AND SEROUSANGUINOUS DRAINAGE ON OLD DRESSING. MINIMAL REDNESS, PEELING SKIN ALONG EDGES. ATTEMPTED TO DOPPLER PEDAL PULSES AND PT IS DIFFICULT TO HEAR AND DP QUESTIONABLE. NO PALPABLE PULSES. FOOT TEMP FEELS NORMAL, CAPILLARY REFILL IS 3 SECONDDS AND TOES PALE PINK. PATIENT SCHEDULED FOR SURGERY WITH DR. SAM TOMORROW. PATIENT PROVIDED INSTRUCTION ON MEASURES TO PROMOTE HEALING AND PREVENT FURTHER COMPLICATIONS. REINFORCEMENT WILL BE NECESSARY.
--- NOTE | 2020-08-06 15:28 | NUR ---
PT INDICATED HE LIVES HOME ALONE IN ONE-LEVEL HOME. PT HAS 0 STAIRS TO NAVIGATE AT HOME. PT HAS WALKER AND W/C. PT DENIES HX WITH HH. PT STATED HE STAYED AT [facility] NOT TOO LONG AGO. PT IS TYPICALLY INDEPENDENT W/CARS AT HOME. AND, PT STATED HE RECEIVES SUPPORT/HELP FROM HIS DTR AND LUIS.
[2020-08-06 16:11] VITALS: BP 136/61
--- NOTE | 2020-08-06 19:24 | NUR ---
PT BACK FROM MRI PER CART. PT HAS A RIGHT UPPER ARM SINGLE LUMEN PICC. PT VOIDS SITTING ON THE SIDE OF THE BED TO VOID. PT DID HAVE A BM SITTING ON THE BEDSIDE COMMODE TODAY. PT VERY FRUSTRATED AND UPSET THIS IS HAPPENING TO HIM HIS FOOT BEING REMOVED DUE TO THE BONE INFECTION. WILL CONTINUE TO MONITOR PLAN OF CARE.
[2020-08-06 21:00] VITALS: BP 127/66
[2020-08-07 04:19] LABS: HEMOGLOBIN 11.7 gm/dL (14.0-18.0); MCHC 33.5 g/dL (28.0-37.0); MCV 80.6 fL (80.0-100.0); MPV 7.7 fl. (7.2-11.1); RBC 4.34 mil/uL (4.50-6.00); RDW-CV 16.2 % (10.5-14.5); WBC 7.6 thou/uL (4.0-11.0)
[2020-08-07 04:33] LABS: CALCIUM 8.4 mg/dL (8.5-10.1); POTASSIUM 3.7 mmol/L (3.5-5.1)
[2020-08-07 04:34] LABS: APTT 28.2 Seconds (25.0-31.3); PROTIME 10.8 Seconds (9.20-11.50)
--- NOTE | 2020-08-07 05:48 | NUR ---
PATIENT SLEPT MOST OF THE NIGHT. IV ANTIBIOTICS WERE GIVEN ORDERED. PATIENT HAS BEEN NPO SINCE MIDNIGHT FOR SURGERY TODAY. BED ALARM REMAINS ON FOR PATIENT SAFETY. WILL CONTINUE TO MONITOR.
[2020-08-07 08:25] VITALS: BP 124/54
--- NOTE | 2020-08-07 12:03 | NUR ---
Pt to OR today for amputation. PT/OT ordered. Plan po abx at dc. ?HH.
--- NOTE | 2020-08-07 15:08 | NUR ---
PT LEFT UNIT FOR PACU APPROX 1500.
--- NOTE | 2020-08-07 17:44 | NUR ---
PT A&OX4 VSS. PT NPO PRIOR TO SURGICAL PROCEDURE. ACCUCHECKS, SLIDING SCALE ADMINISTERED INDICATED. PT PICC TO MIRZA PATENT, DRESSING C/D/I. IV ABX ADMINISTERED DIRECTED. PT REMAINS NWB TO LLE. OF THIS TIME, PT HAS NOT RETURNED TO UNIT FROM PACU.
--- NOTE | 2020-08-07 18:09 | NUR ---
PT REURNED TO UNIT FROM PACU. PT A&OX4 VSS. LLE ELEVATED ON PILLOWS X2. FAMILY AT BEDSIDE. PT RESTS IN BED WITH CALL LIGHT AND WATER IN REACH. 2L O2 BY NASAL CANNULA. WILL CONTINUE TO MONITOR
[2020-08-07 19:35] VITALS: BP 119/55
[2020-08-08 00:12] VITALS: BP 131/61
[2020-08-08 04:10] VITALS: BP 129/53
[2020-08-08 06:45] LABS: HEMATOCRIT 36.4 % (42.0-52.0); HEMOGLOBIN 11.9 gm/dL (14.0-18.0); MCH 26.7 pg (26.0-34.0); MCHC 32.8 g/dL (28.0-37.0); MCV 81.5 fL (80.0-100.0); RBC 4.47 mil/uL (4.50-6.00); RDW-CV 16.5 % (10.5-14.5); WBC 6.1 thou/uL (4.0-11.0)
[2020-08-08 06:49] LABS: CALCIUM 8.6 mg/dL (8.5-10.1); CREATININE 1.1 mg/dL (0.6-1.3); POTASSIUM 3.8 mmol/L (3.5-5.1)
--- NOTE | 2020-08-08 06:55 | NUR ---
PT HAS SLEPT FAIRLY WELL OVERNIGHT. RECEIVED PO PAIN MED TWICE THIS SHIFT FOR CO GENERALIZED PAIN. POST OP DRSG TO LEFT FOOT GREAT TOE AND SECOND TOE AMPUTATION. VISIBLE TOES PINK AND WARM TO LEFT FOOT, +CAP REFILL. CAPNO ON OVERNIGHT. AM LABS DRAWN. MIRZA SL PICC SL, ABX GIVEN ORDERED. CALL LITE IN EASY REACH, BED ALARM ON FOR SAFETY. USING URINAL TO VOID AND UP TO BSC WITH ASSIST.
[2020-08-08 07:15] LABS: APTT 28.8 Seconds (25.0-31.3); PROTIME 10.8 Seconds (9.20-11.50)
[2020-08-08 08:05] VITALS: BP 109/54
[2020-08-08 17:14] VITALS: BP 109/45
--- NOTE | 2020-08-08 19:44 | NUR ---
Pt remained A&O x4 for entire shift. Vital signs stable, Pt pleasant with staff. Pt states pain is well controlled. Meds given per APR. Pt encouraged to elevate lower extremities. Bed in low position, call light within reach.
[2020-08-08 20:13] VITALS: BP 110/54
--- NOTE | 2020-08-09 04:45 | NUR ---
PATIENT APPEARS TO BE IN PAIN BUT WHEN ASSESSED EVERY HOUR HE DENIES ANY PAIN OR NEED FOR PAIN MEDICATION. HE IS ASSIST X 1/ NEEDS HELP WITH TOILETING. USES URINAL BUT SOMETIMES MISSES. HE IS ON ROOM AIR. NON WB TO LEFT FOOT. FALL PRECAUTIONS IN PLACE. HE IS ALERT AND COMPLIANT WITH CARE. RECEIVED ALL MEDS SCHEDULED.
[2020-08-09 08:00] VITALS: BP 112/58
--- NOTE | 2020-08-09 19:18 | NUR ---
Pt remained A&O x4 for entire shift. Vital signs stable. Pt pleasant with staff. Pt complained of spasms in leg. Dr. Landaverde notified, orders recieved for flexeril. Pt noted improvement of spasms after taking the medication. Pt's daughter and son in law came with Father's day lunch. Pt up to chair for afternoon and dinner. Pt given meds per APR. Pt turned Q2 hours, hourly rounding completed. Bed in low position, bed/chair alarm on, call light within reach.
[2020-08-09 20:39] VITALS: BP 114/51
--- NOTE | 2020-08-10 04:26 | NUR ---
PT IS ALERT AND ORIENTED. ROOM AIR. USES CALL LIGHT MOST OF THE TIME. HE IS A HIGH FALL RISK, PRECAUTIONS IN PLACE. HE URINATES FREQUENTLY AND WILL NEED ASSIST WITH WALKER TO STAND TO USE URINAL AT BEDSIDE. HE IS VERY UNSTABLE ON HIS FEET AND SEVERAL TIMES FELL BACK INTO BED. HE HAS OVERALL WEAKNESS BUT IS ABLE TO MOVE HIMSELF WITH SOME HELP. HE RECEIVED ALL MEDS SCHEDULED. HE DID NOT REPORT ANY PAIN ONLY AFTER HE GOT UP. HE DID NOT WANT ANY PAIN MEDICATION THIS SHIFT. I GAVE TYLENOL AT BEDTIME FOR AN ELEVATED TEMP. HE HAS SLEPT WELL THIS SHIFT BETWEEN NEEDING TO URINATE FREQUENTLY.
[2020-08-10 07:50] VITALS: BP 134/61
--- NOTE | 2020-08-10 15:23 | NUR ---
Therapies ordered. Waiting on sensitivities. Anticipate Ivabx at ne, CM faxed referral to [facility] to check cost, awaiting call back. CM left VM for Pt's son to determine dispo, SNF vs HH
[2020-08-10 16:47] VITALS: BP 118/55
--- NOTE | 2020-08-10 18:12 | NUR ---
PT A&OX4 VSS. PT UP TO RECLINER THIS SHIFT. FALL PRECAUTIONS IN PLACE. DRESING C/D/I. PT STILL NWB TO LLE. ACCUCHECKS, SLIDING SCALE INSULIN ADMINISTERED INDICATED. PRN PAIN MEDICATION ADMINISTERED REQUESTED. PT REPORTS RELIEF OF SYMPTOMS. PICC TO MIRZA PATENT, DRESSING C/D/I. PT REMAINS ON ROOM AIR. CASE MANAGEMENT CONTINUES TO WORK ON DISCHARGE PLAN. PT RESTS IN ROOM WITH CALL LIGHT IN REACH, WILL CONTINUE TO MONITOR.
--- NOTE | 2020-08-10 18:35 | NUR ---
MEROPENEM AND VANC NOT LOADED IN [facility].
[2020-08-10 20:30] VITALS: BP 145/63
[2020-08-11 00:32] VITALS: BP 134/62
[2020-08-11 04:24] VITALS: BP 141/53
[2020-08-11 05:17] LABS: HEMATOCRIT 33.1 % (42.0-52.0); HEMOGLOBIN 11.1 gm/dL (14.0-18.0); MCH 27.1 pg (26.0-34.0); MCHC 33.4 g/dL (28.0-37.0); MPV 7.5 fl. (7.2-11.1); RBC 4.09 mil/uL (4.50-6.00); RDW-CV 16.2 % (10.5-14.5); WBC 7.3 thou/uL (4.0-11.0)
[2020-08-11 05:38] LABS: ALBUMIN 2.5 g/dL (3.4-5.0); CALCIUM 8.4 mg/dL (8.5-10.1); CREATININE 1.2 mg/dL (0.6-1.3); MAGNESIUM 1.9 mg/dL (1.8-2.4); POTASSIUM 4.1 mmol/L (3.5-5.1); TOTAL BILIRUBIN 0.2 mg/dL (<0.1-1.0); TOTAL PROTEIN 6.4 g/dL (6.4-8.2)
[2020-08-11 07:55] VITALS: BP 102/56
--- NOTE | 2020-08-11 07:57 | NUR ---
PATIENT HAS SLEPT WELL THROUGHOUT MOST OF THE NIGHT. VSS ON RA. MEDICATIONS GIVEN ORDERED AND CHARTED. PATIENT UP WITH ASSIST X 1 TO USE BEDSIDE URINAL. DRESSING TO LEFT LOWER EXTREMITY IS C/D/I AND PODIATRY SHOE IN PLACE. RIGHT UPPER ARM PICC-SL. IV ABT'S GIVEN ORDERED WITH NO ADVERSE SIDE EFFECTS NOTED. FALL PRECAUTIONS IN PLACE AND HOURLY ROUNDS MADE. WILL CONTINUE WITH PLAN OF CARE AND NURSING TO MONITOR.
--- NOTE | 2020-08-11 11:44 | NUR ---
REFERRAL PACKETS FAXED TO [facility] ([phone]) [facility] ([phone]) AWAITING APPROVAL. CM TO CONTINUE TO FOLLOW FOR SAFE D/C PLANNING.
--- NOTE | 2020-08-11 12:44 | NUR ---
Anticipate dc to SNF tomorrow. JOSE updated Sada at [facility], faxed updated clinicals and therapy notes. Pt will need IVabx at dc, CM also updated SNF. CM updated Pt's son, he is in agreement with POC. Per son, plan to transition Pt to LTC once SNF complete. Picc in. Await insurance auth.
[2020-08-11 16:00] VITALS: BP 115/51
--- NOTE | 2020-08-11 16:47 | NUR ---
PT A&OX4 VSS, FORGETFUL AT TIMES. ACCUCHECKS, SLIDING SCALE INSULIN DIRECTED. PT REMAINS CONTINENT OF B/B. FALL PRECAUTIONS IN PLACE. NWB TO LLE. PT UP TO RECLINER THIS SHIFT, FOOT ELEVATED ON PILLOW. PT PLANNED DISCHARGE TOMORROW. PRN PAIN MEDICATIONS ADMINISTERED REQUESTED. FAMILY UPDATED BY PHONE THIS SHIFT. PT RESTS IN ROOM WITH CALL LIGHT IN REACH, WILL CONTINUE TO MONITOR.
[2020-08-11 20:20] VITALS: BP 116/48
--- NOTE | 2020-08-12 07:36 | NUR ---
PT SLEPT WELL OVERNIGHT, PO PAIN MED AND FLEXERIL GIVEN WITH GOOD RESULT. HS ACCUCHECK 156, INSULIN GIVEN ORDERED. PT VOIDING PER URINAL, EXCORIATION TO CHRISTIAN AREA, CHRISTIAN CARE GIVEN AND ANTIFUNGAL CREAM APPLIED. UP WITH ASSIST, GB AND WALKER. LFOOT DRSG CDI, POST OP SHOE ON WHILE UP, NWB TO LEFT FOOT MAINTAINED. MIRZA PICC SL, IV ABX GIVEN ORDERED. ROOM AIR. ABLE TO USE CALL LITE AND MAKENEEDS KNOWN. TO HAVE VANC TROUGH TODAY 1700. CALL LITE IN EASY REACH. BED ALARM ON FOR SAFETY.
[2020-08-12 09:28] VITALS: BP 118/49
[2020-08-12] MEDS ORDERED: HYDROCODON-ACE1 EAC7 PO (09:34)
[2020-08-12] MEDS ORDERED: IBUPROFEN 600600 M1 PO (09:34)
--- NOTE | 2020-08-12 12:41 | NUR ---
Nutrition: follow up note, reassessment. Pt asleep at time of visit. Awaiting auth for SNF. He is drinking Glucerna shakes daily. BG WNL. Albumin 2.5. Toe amputated. Wt stable. Will continue to follow per protocol. Mild risk.
--- NOTE | 2020-08-12 13:43 | NUR ---
Continue to await insurance auth for SNF
--- NOTE | 2020-08-12 13:50 | CON ---
[address] [address] CONSULTATION Name: MINE QUESADA Room: [address] IN M.R.#: [id number] Admission: 08/05/20 Attend Phys: Pratik Hurt MD Discharge: Date of : 34 Report #: [id number] THIS REPORT FOR: cc: Christian Hamilton Ahmad W. DO Hanon, Daniel R. DPM ~ DOC #: [id number] Mane Burch DPM DATE OF CONSULTATION: 08/10/2020 CHIEF COMPLAINT: Postop day 3 for resection, left distal first metatarsal and great toe for osteomyelitis. HISTORY OF PRESENT ILLNESS: The patient is resting comfortably, mild pain, good appetite. He has been afebrile since hospitalization. Surgical cultures growing Enterococcus faecalis, Pseudomonas aeruginosa and Staph aureus with pending sensitivities. He is on parental Zosyn with good tolerance. He has remained nonweightbearing since surgery. LABORATORY DATA : No new labs for review. PHYSICAL EXAMINATION: VITAL SIGNS: Temperature 99.6, pulse 84, respirations 18, blood pressure 114/51. SKIN: The incision is well coapted with no signs of dehiscence or acute vascular embarrassment. Moderate inflammation and erythema with some maceration at the distal open portion of the incision. Roughly 90% of the incision has been sutured. The distal aspect near the great toe disarticulation was left open due to lack of skin for closure and to facilitate packing for drainage. Capillary refill is less than 1 seconds to the joyce-incision with no pallor/cyanosis. No underlying fluctuance or crepitation. The foot is warm with faintly palpable dorsalis pedis and posterior tibial pulses. IMPRESSION: Osteomyelitis, status post surgical resection; type 2 diabetes mellitus with PAD. PLAN: The Aquacel packing was pulled and the interior of the surgical wound was cleansed with wound cleanser. The foot was cleansed and dried and dressed with sterile 4 x 4s, ABDs, Kerlix and Ricky. I will write an order for physical therapy to facilitate transfers in short distances. I will allow partial weightbearing on the left heel and a surgical shoe with walker and therapy assistance. Mane Burch DPM [facility] [address] CONSULTATION Name: MINE QUESADA Room: [address] IN [facility]#: [id number] Admission: 08/05/20 Attend Phys: Pratik Hurt MD Discharge: Date of : 32 Report #: [id number] <ELECTRONICALLY SIGNED> By: Mane Burch DPM 08/12/20 1350 0628 0705Mane Burch DPM /willie
--- NOTE | 2020-08-12 13:50 | CON ---
[address] [address] CONSULTATION Name: MINE QUESADA Room: [address] IN M.R.#: [id number] Admission: 08/05/20 Attend Phys: Pratik Hurt MD Discharge: Date of : 32 Report #: [id number] THIS REPORT FOR: cc: Christian Hamilton Ahmad W. DO Hanon, Daniel R. DPM ~ DOC #: [id number] Mane Burch DPM DATE OF CONSULTATION: 08/11/2020 CHIEF COMPLAINT: Status post resection, left distal first ray for osteomyelitis with polymicrobial growth. HISTORY OF PRESENT ILLNESS: He is on parenteral vancomycin and meropenem with good tolerance. He has stable appetite, low-grade pain. Physical therapy has worked with him for transfers and short ambulation. He has remained afebrile during hospitalization. Surgical cultures growing Enterococcus faecalis, Pseudomonas, and Staph aureus. LABORATORY DATA: WBC 7.3, RBC 4.09, hemoglobin 11.1, hematocrit 33.1, platelets 291. BUN 16, creatinine 1.2, glucose 73. PHYSICAL EXAMINATION: VITAL SIGNS: Temperature 97.5, pulse 82, respirations 21, blood pressure 141/53. EXTREMITIES: Surgical incision is well coapted except distal area which was intentionally left open due to lack of soft tissue for closure. There is localized erythema roughly unchanged since yesterday. No pallor/cyanosis or signs of acute vascular embarrassment. No underlying fluctuance or crepitation. No calf pain or popliteal adenopathy. Negative Homans and Gibbs sign to both lower extremities. IMPRESSION: Osteomyelitis with polymicrobial infection, type 2 diabetes mellitus, peripheral arterial disease. PLAN: The wound interior was flushed with sterile saline and dried and the wound was dressed with sterile 4 x 4s, ABDs, Kerlix and Ricky bandage, awaiting surgical pathology. RAFAELA [place]z/[place] [address] CONSULTATION Name: MINE QUESADA Room: [address] IN .R.#: [id number] Admission: 08/05/20 Attend Phys: Pratik Hurt MD Discharge: Date of : 32 Report #: [id number] <ELECTRONICALLY SIGNED> By: Mane Burch DPM 08/12/20 1350 0628 0839Mane Burch DPM /willie
--- NOTE | 2020-08-12 13:50 | CON ---
[address] [address] CONSULTATION Name: MINE QUESADA Room: [address] IN M.R.#: [id number] Admission: 08/05/20 Attend Phys: Pratik Hurt MD Discharge: Date of : 32 Report #: [id number] THIS REPORT FOR: cc: Christian Hamilton Ahmad W. DO Hanon, Daniel R. DPM ~ DOC #: [id number] Mane Burch DPM DATE OF CONSULTATION: 08/08/2020 HISTORY OF PRESENT ILLNESS: Postoperative day #1 for left partial first ray resection with primary closure for osteomyelitis and nonhealing foot ulceration. He relates low-grade pain, good appetite. Surgical cultures are pending. He is on parenteral Zosyn with good tolerance. He takes ibuprofen 600 mg and hydrocodone 3/325 for pain. He is sitting upright in a reclining chair, fully communicative. He is oriented to person, place and time. He states he ate his breakfast this morning. LABORATORY DATA: WBC 6.1, RBC 4.47, hemoglobin 11.9, hematocrit 36.4, platelets 298. BUN 15, creatinine 1.1, glucose 80. PHYSICAL EXAMINATION: VITAL SIGNS: Temperature 98.2, pulse 73, respirations 17, blood pressure 129/53. EXTREMITIES: Surgical incision is well coapted with no pallor/cyanosis or signs of dehiscence or acute vascular embarrassment. Decreased inflammation and erythema to the foot consistent with resolving cellulitis and soft tissue infection. The foot is warm to the touch, no active bleeding. Small postoperative wound is packed with Aquacel Ag with no underlying fluctuance/crepitation. No calf or popliteal tenderness bilaterally. IMPRESSION: Osteomyelitis, status post left partial first ray resection. PLAN: The foot was cleansed, dried and redressed with Aquacel Ag, ABD, Kerlix and Ricky bandage. The patient remained nonweightbearing to the extremity. Rest and elevate. Maximize glycemic control and nutrition. Awaiting surgical cultures and pathology. RAFAELA Benz/[facility] [address] CONSULTATION Name: SANGITAHANNAHWanda Pandye Room: [address] IN [facility]#: [id number] Admission: 08/05/20 Attend Phys: Pratik Hurt MD Discharge: Date of : 32 Report #: [id number] <ELECTRONICALLY SIGNED> By: Mane Burch DPM 08/12/20 1350 0940 1433Danipola Burch DPM /nt
--- NOTE | 2020-08-12 14:39 | NUR ---
Insurance auth received for Pt to dc to skilled. Await time for facility to tow picker. Nurse report number is [phone]. Chart copied. Updated Pt's LUIS.
--- NOTE | 2020-08-12 16:51 | NUR ---
PT DISCHARGED TO [facility] TRIED TO CALL FACILITY A FEW TIMES NO ANSWER PICC LINE STILL IN VANC TROUGH DONE HERE WILL CALL RESULTS
--- NOTE | 2020-08-12 17:07 | PATH ---
[address] [address] PATHOLOGY RPT PROCEDURE Name: MINE QUESADA Room: [address] IN .R.#: [id number] Admission: 08/05/20 Date of : 32 Discharge: Report #: [id number] Path Case #: [id number] [facility] Accession Number: [id number] . 01 Material submitted: . hallux - LEFT HALLUX 1ST METATARSAL SESAMOIDS. Modifiers: left, first . 01 Clinical history: . CELLULITIS LEFT GREAT TOE METATARSAL HEAD RESECTION OSTEOMYELITIS . 02 Diagnosis: Toe, left hallux, first metatarsal, sesamoids, amputation/metatarsal head resection: - Necrotic wound measuring 3.7 x 2.5 cm extending to inked margin. - Bone with acute osteomyelitis, multifocal. - Soft tissue showing acute inflammation and fibrinoid degeneration. - Bone margin viable. (IUV:sanjiv; 08/12/2020) MBR 08/12/2020 1610 Local . 02 Electronically signed: . Tabatha Leggett MD, Pathologist NPI- [id number] . 01 Gross description: . The specimen is received in formalin, labeled "Mine Quesada, left hallux, first metatarsal, sesamoids". Received is an amputated digit measuring 7.3 x 3.8 x 3.0 cm in greatest dimensions. The bone margin is smooth and concave in appearance, consistent with disarticulation. The bone and soft tissue margins are inked black. The nail is present display in a light martinez and severely thickened appearance. On the medial aspect of the specimen, there is a martino-brown, necrotic-appearing wound, exposing the underlying bone, measuring 3.7 x 2.5 cm, which grossly abuts the inked margin. A horizontal cross-section through the lesion, to include underlying bone, is submitted in cassette A1, following the calcification. A longitudinal cross-section through the bone margin is submitted in cassette A2, following decalcification. The section in cassette A1 is immediately distal to section in cassette A2. . Also received within the specimen container is a metatarsal measuring 4.4 x 2.7 x 2.3 cm in greatest dimensions. One margin is smooth, convex to disrupted in appearance, consistent with disarticulation, and the opposite margin is blunt in appearance, consistent with transection. A full-thickness longitudinal cross-section is submitted from transected to disarticulated aspects in cassettes A3 and A4, [place] [address] PATHOLOGY RPT PROCEDURE Name: MINE QUESADA Room: [address] IN [facility]#: [id number] Admission: 08/05/20 Date of : 32 Discharge: Report #: [id number] Path Case #: [id number] Also received is a segment of light martinez to yellow-martinez soft tissue with attached sesamoid bones measuring 5.3 x 3.7 x 1.1 cm in greatest dimensions. The specimen is submitted representatively in cassette A5, following decalcification. (CAA; 08/11/2020) QAC/QAC 08/12/2020 1608 Local . 02 Pathologist provided ICD-10: M86.172, M79.9 . 02 CPT . 201565, [id number] Specimen Comment: A courtesy copy of this report has been sent to [phone] Specimen Comment: [phone], Specimen Comment: Report sent to ,DR WELDON / DR BERNAL Performed at: [address] [facility] [address], [place], [place] [id number] MD Wei Cortez MD Phone: [phone] Performed at: [address] [facility] [address] [id number] MD Tabatha Leggett MD Phone: [phone]
== END 2020-08-12 16:25 | DRG 617 ==
LOC: M.WC 12:09 → M.ORTHSURG 13:45
PROVIDERS: Internal Medicine; ADMIT Internal Medicine; ATTEND Internal Medicine
PROC: 0Y6N0Z9 Detachment at Left Foot, Partial 1st Ray, Open Approach (ICD-10-PCS; principal; 2020-08-07)
DX: E11.69 Type 2 diabetes mellitus with other specified complication (principal); M86.8X7 Other osteomyelitis, ankle and foot; E44.1 Mild protein-calorie malnutrition; E11.621 Type 2 diabetes mellitus with foot ulcer; Z20.822 Contact with and (suspected) exposure to COVID-19; L97.529 Non-pressure chronic ulcer of other part of left foot with unspecified severity; E11.51 Type 2 diabetes mellitus with diabetic peripheral angiopathy without gangrene; Z96.651 Presence of right artificial knee joint; G89.29 Other chronic pain; M54.9 Dorsalgia, unspecified; E11.40 Type 2 diabetes mellitus with diabetic neuropathy, unspecified; B95.2 Enterococcus as the cause of diseases classified elsewhere; B96.5 Pseudomonas (aeruginosa) (mallei) (pseudomallei) as the cause of diseases classified elsewhere; R53.81 Other malaise; Z90.49 Acquired absence of other specified parts of digestive tract; Z87.891 Personal history of nicotine dependence

== ENCOUNTER → 2020-08-19 | Outpatient (CLI) | payer OTHER ==
[~2020-08-19] MED LIST changes: +HYDROCODON-ACE1 EAC7 PO; +IBUPROFEN 600600 M1 PO
== END ==
LOC: M.WC 13:47
PROVIDERS: ATTEND Podiatrist Foot & Ankle Surgery
DX: T87.89 Other complications of amputation stump (principal); E11.621 Type 2 diabetes mellitus with foot ulcer; L97.522 Non-pressure chronic ulcer of other part of left foot with fat layer exposed; E11.69 Type 2 diabetes mellitus with other specified complication; M86.8X7 Other osteomyelitis, ankle and foot; E11.51 Type 2 diabetes mellitus with diabetic peripheral angiopathy without gangrene; E11.43 Type 2 diabetes mellitus with diabetic autonomic (poly)neuropathy; E11.39 Type 2 diabetes mellitus with other diabetic ophthalmic complication; H42 Glaucoma in diseases classified elsewhere; R62.7 Adult failure to thrive; G89.29 Other chronic pain; I10 Essential (primary) hypertension; F41.9 Anxiety disorder, unspecified; Z79.4 Long term (current) use of insulin; Y83.5 Amputation of limb(s) as the cause of abnormal reaction of the patient, or of later complication, without mention of misadventure at the time of the procedure

== ENCOUNTER → 2020-08-26 | Outpatient (CLI) | payer OTHER | LOC: M.WC 10:30 → M.ULTRA 13:00 | PROVIDERS: ATTEND Radiology Diagnostic Radiology | DX: T87.89 Other complications of amputation stump (principal); E11.621 Type 2 diabetes mellitus with foot ulcer; L97.522 Non-pressure chronic ulcer of other part of left foot with fat layer exposed; E11.69 Type 2 diabetes mellitus with other specified complication; M86.8X7 Other osteomyelitis, ankle and foot; E11.51 Type 2 diabetes mellitus with diabetic peripheral angiopathy without gangrene; E11.43 Type 2 diabetes mellitus with diabetic autonomic (poly)neuropathy; E11.39 Type 2 diabetes mellitus with other diabetic ophthalmic complication; H42 Glaucoma in diseases classified elsewhere; R62.7 Adult failure to thrive; G89.29 Other chronic pain; I10 Essential (primary) hypertension; F41.9 Anxiety disorder, unspecified; Z79.4 Long term (current) use of insulin; Y83.5 Amputation of limb(s) as the cause of abnormal reaction of the patient, or of later complication, without mention of misadventure at the time of the procedure ==

== ENCOUNTER → 2020-09-02 | Outpatient (CLI) | payer OTHER | LOC: M.WC 09:44 | PROVIDERS: ATTEND Surgery | DX: T87.89 Other complications of amputation stump (principal); E11.621 Type 2 diabetes mellitus with foot ulcer; L97.522 Non-pressure chronic ulcer of other part of left foot with fat layer exposed; E11.69 Type 2 diabetes mellitus with other specified complication; M86.8X7 Other osteomyelitis, ankle and foot; E11.51 Type 2 diabetes mellitus with diabetic peripheral angiopathy without gangrene; E11.43 Type 2 diabetes mellitus with diabetic autonomic (poly)neuropathy; E11.39 Type 2 diabetes mellitus with other diabetic ophthalmic complication; H42 Glaucoma in diseases classified elsewhere; R62.7 Adult failure to thrive; G89.29 Other chronic pain; I10 Essential (primary) hypertension; F41.9 Anxiety disorder, unspecified; Z79.4 Long term (current) use of insulin; Y83.5 Amputation of limb(s) as the cause of abnormal reaction of the patient, or of later complication, without mention of misadventure at the time of the procedure ==

== ENCOUNTER → 2020-09-09 | Outpatient (CLI) | payer OTHER | LOC: M.WC 09:41 | PROVIDERS: ATTEND Surgery | DX: T87.89 Other complications of amputation stump (principal); E11.621 Type 2 diabetes mellitus with foot ulcer; L97.522 Non-pressure chronic ulcer of other part of left foot with fat layer exposed; E11.69 Type 2 diabetes mellitus with other specified complication; M86.8X7 Other osteomyelitis, ankle and foot; E11.51 Type 2 diabetes mellitus with diabetic peripheral angiopathy without gangrene; E11.43 Type 2 diabetes mellitus with diabetic autonomic (poly)neuropathy; E11.39 Type 2 diabetes mellitus with other diabetic ophthalmic complication; H42 Glaucoma in diseases classified elsewhere; R62.7 Adult failure to thrive; G89.29 Other chronic pain; I10 Essential (primary) hypertension; F41.9 Anxiety disorder, unspecified; Z79.4 Long term (current) use of insulin; Y83.5 Amputation of limb(s) as the cause of abnormal reaction of the patient, or of later complication, without mention of misadventure at the time of the procedure ==

== ENCOUNTER → 2020-09-16 | Outpatient (CLI) | payer OTHER | LOC: M.WC 10:00 | PROVIDERS: ATTEND Surgery | DX: T87.89 Other complications of amputation stump (principal); E11.621 Type 2 diabetes mellitus with foot ulcer; L97.522 Non-pressure chronic ulcer of other part of left foot with fat layer exposed; E11.69 Type 2 diabetes mellitus with other specified complication; M86.8X7 Other osteomyelitis, ankle and foot; E11.51 Type 2 diabetes mellitus with diabetic peripheral angiopathy without gangrene; E11.43 Type 2 diabetes mellitus with diabetic autonomic (poly)neuropathy; E11.39 Type 2 diabetes mellitus with other diabetic ophthalmic complication; H42 Glaucoma in diseases classified elsewhere; R62.7 Adult failure to thrive; G89.29 Other chronic pain; I10 Essential (primary) hypertension; F41.9 Anxiety disorder, unspecified; Z79.4 Long term (current) use of insulin; Y83.5 Amputation of limb(s) as the cause of abnormal reaction of the patient, or of later complication, without mention of misadventure at the time of the procedure ==

== ENCOUNTER → 2020-09-23 | Outpatient (CLI) | payer OTHER | LOC: M.WC 10:00 | PROVIDERS: ATTEND Surgery | DX: T87.89 Other complications of amputation stump (principal); E11.621 Type 2 diabetes mellitus with foot ulcer; L97.522 Non-pressure chronic ulcer of other part of left foot with fat layer exposed; E11.69 Type 2 diabetes mellitus with other specified complication; M86.8X7 Other osteomyelitis, ankle and foot; E11.51 Type 2 diabetes mellitus with diabetic peripheral angiopathy without gangrene; E11.43 Type 2 diabetes mellitus with diabetic autonomic (poly)neuropathy; E11.39 Type 2 diabetes mellitus with other diabetic ophthalmic complication; H42 Glaucoma in diseases classified elsewhere; R62.7 Adult failure to thrive; G89.29 Other chronic pain; I10 Essential (primary) hypertension; F41.9 Anxiety disorder, unspecified; Z79.4 Long term (current) use of insulin; Y83.5 Amputation of limb(s) as the cause of abnormal reaction of the patient, or of later complication, without mention of misadventure at the time of the procedure ==

== ENCOUNTER → 2020-09-30 | Outpatient (CLI) | payer OTHER | LOC: M.WC 09:03 | PROVIDERS: ATTEND Surgery | DX: T87.89 Other complications of amputation stump (principal); E11.621 Type 2 diabetes mellitus with foot ulcer; L97.522 Non-pressure chronic ulcer of other part of left foot with fat layer exposed; L84 Corns and callosities; E11.69 Type 2 diabetes mellitus with other specified complication; M86.8X7 Other osteomyelitis, ankle and foot; E11.51 Type 2 diabetes mellitus with diabetic peripheral angiopathy without gangrene; E11.43 Type 2 diabetes mellitus with diabetic autonomic (poly)neuropathy; E11.39 Type 2 diabetes mellitus with other diabetic ophthalmic complication; H42 Glaucoma in diseases classified elsewhere; R62.7 Adult failure to thrive; G89.29 Other chronic pain; I10 Essential (primary) hypertension; F41.9 Anxiety disorder, unspecified; Z79.4 Long term (current) use of insulin; Y83.5 Amputation of limb(s) as the cause of abnormal reaction of the patient, or of later complication, without mention of misadventure at the time of the procedure ==

== ENCOUNTER → 2020-10-08 | Outpatient (CLI) | payer OTHER | LOC: M.WC 08:21 | PROVIDERS: ATTEND Family Medicine | DX: T87.89 Other complications of amputation stump (principal); E11.621 Type 2 diabetes mellitus with foot ulcer; L97.522 Non-pressure chronic ulcer of other part of left foot with fat layer exposed; L84 Corns and callosities; E11.69 Type 2 diabetes mellitus with other specified complication; M86.8X7 Other osteomyelitis, ankle and foot; E11.51 Type 2 diabetes mellitus with diabetic peripheral angiopathy without gangrene; E11.43 Type 2 diabetes mellitus with diabetic autonomic (poly)neuropathy; E11.39 Type 2 diabetes mellitus with other diabetic ophthalmic complication; H42 Glaucoma in diseases classified elsewhere; R62.7 Adult failure to thrive; G89.29 Other chronic pain; I10 Essential (primary) hypertension; F41.9 Anxiety disorder, unspecified; Z79.4 Long term (current) use of insulin; Y83.5 Amputation of limb(s) as the cause of abnormal reaction of the patient, or of later complication, without mention of misadventure at the time of the procedure ==

== ENCOUNTER → 2020-10-14 | Outpatient (CLI) | payer OTHER | LOC: M.WC 09:35 | PROVIDERS: ATTEND Surgery | DX: T87.89 Other complications of amputation stump (principal); E11.621 Type 2 diabetes mellitus with foot ulcer; L97.526 Non-pressure chronic ulcer of other part of left foot with bone involvement without evidence of necrosis; L84 Corns and callosities; E11.69 Type 2 diabetes mellitus with other specified complication; M86.8X7 Other osteomyelitis, ankle and foot; E11.51 Type 2 diabetes mellitus with diabetic peripheral angiopathy without gangrene; E11.43 Type 2 diabetes mellitus with diabetic autonomic (poly)neuropathy; E11.39 Type 2 diabetes mellitus with other diabetic ophthalmic complication; H42 Glaucoma in diseases classified elsewhere; R62.7 Adult failure to thrive; G89.29 Other chronic pain; I10 Essential (primary) hypertension; F41.9 Anxiety disorder, unspecified; Z79.4 Long term (current) use of insulin; Y83.5 Amputation of limb(s) as the cause of abnormal reaction of the patient, or of later complication, without mention of misadventure at the time of the procedure ==

== ENCOUNTER → 2020-10-21 | Outpatient (CLI) | payer OTHER | LOC: M.WC 09:13 | PROVIDERS: ATTEND Surgery | DX: T87.89 Other complications of amputation stump (principal); E11.621 Type 2 diabetes mellitus with foot ulcer; L97.526 Non-pressure chronic ulcer of other part of left foot with bone involvement without evidence of necrosis; L84 Corns and callosities; E11.69 Type 2 diabetes mellitus with other specified complication; M86.8X7 Other osteomyelitis, ankle and foot; E11.51 Type 2 diabetes mellitus with diabetic peripheral angiopathy without gangrene; E11.43 Type 2 diabetes mellitus with diabetic autonomic (poly)neuropathy; E11.39 Type 2 diabetes mellitus with other diabetic ophthalmic complication; H42 Glaucoma in diseases classified elsewhere; R62.7 Adult failure to thrive; G89.29 Other chronic pain; I10 Essential (primary) hypertension; F41.9 Anxiety disorder, unspecified; Z79.4 Long term (current) use of insulin; Y83.5 Amputation of limb(s) as the cause of abnormal reaction of the patient, or of later complication, without mention of misadventure at the time of the procedure ==

== ENCOUNTER → 2020-10-28 | Outpatient (CLI) | payer OTHER | LOC: M.WC 08:45 | PROVIDERS: ATTEND Surgery | DX: T87.89 Other complications of amputation stump (principal); E11.621 Type 2 diabetes mellitus with foot ulcer; L97.526 Non-pressure chronic ulcer of other part of left foot with bone involvement without evidence of necrosis; L84 Corns and callosities; E11.69 Type 2 diabetes mellitus with other specified complication; M86.8X7 Other osteomyelitis, ankle and foot; E11.51 Type 2 diabetes mellitus with diabetic peripheral angiopathy without gangrene; E11.43 Type 2 diabetes mellitus with diabetic autonomic (poly)neuropathy; E11.39 Type 2 diabetes mellitus with other diabetic ophthalmic complication; H42 Glaucoma in diseases classified elsewhere; R62.7 Adult failure to thrive; G89.29 Other chronic pain; I10 Essential (primary) hypertension; F41.9 Anxiety disorder, unspecified; Z79.4 Long term (current) use of insulin; Y83.5 Amputation of limb(s) as the cause of abnormal reaction of the patient, or of later complication, without mention of misadventure at the time of the procedure ==

== ENCOUNTER → 2020-11-04 | Outpatient (CLI) | payer OTHER | LOC: M.WC 09:40 | PROVIDERS: ATTEND Surgery | DX: T87.89 Other complications of amputation stump (principal); E11.621 Type 2 diabetes mellitus with foot ulcer; L97.526 Non-pressure chronic ulcer of other part of left foot with bone involvement without evidence of necrosis; L84 Corns and callosities; E11.69 Type 2 diabetes mellitus with other specified complication; M86.8X7 Other osteomyelitis, ankle and foot; E11.51 Type 2 diabetes mellitus with diabetic peripheral angiopathy without gangrene; E11.43 Type 2 diabetes mellitus with diabetic autonomic (poly)neuropathy; E11.39 Type 2 diabetes mellitus with other diabetic ophthalmic complication; H42 Glaucoma in diseases classified elsewhere; R62.7 Adult failure to thrive; G89.29 Other chronic pain; I10 Essential (primary) hypertension; F41.9 Anxiety disorder, unspecified; Y83.5 Amputation of limb(s) as the cause of abnormal reaction of the patient, or of later complication, without mention of misadventure at the time of the procedure ==

== ENCOUNTER → 2020-11-11 | Outpatient (CLI) | payer OTHER | LOC: M.WC 09:20 | PROVIDERS: ATTEND Surgery | DX: T87.89 Other complications of amputation stump (principal); E11.621 Type 2 diabetes mellitus with foot ulcer; L97.526 Non-pressure chronic ulcer of other part of left foot with bone involvement without evidence of necrosis; L84 Corns and callosities; E11.69 Type 2 diabetes mellitus with other specified complication; M86.8X7 Other osteomyelitis, ankle and foot; E11.51 Type 2 diabetes mellitus with diabetic peripheral angiopathy without gangrene; E11.43 Type 2 diabetes mellitus with diabetic autonomic (poly)neuropathy; E11.39 Type 2 diabetes mellitus with other diabetic ophthalmic complication; H42 Glaucoma in diseases classified elsewhere; R62.7 Adult failure to thrive; G89.29 Other chronic pain; I10 Essential (primary) hypertension; F41.9 Anxiety disorder, unspecified; Y83.5 Amputation of limb(s) as the cause of abnormal reaction of the patient, or of later complication, without mention of misadventure at the time of the procedure ==

== ENCOUNTER → 2020-11-18 | Outpatient (CLI) | payer OTHER | LOC: M.WC 09:02 | PROVIDERS: ATTEND Surgery | DX: T87.89 Other complications of amputation stump (principal); E11.621 Type 2 diabetes mellitus with foot ulcer; L97.526 Non-pressure chronic ulcer of other part of left foot with bone involvement without evidence of necrosis; L84 Corns and callosities; E11.69 Type 2 diabetes mellitus with other specified complication; M86.8X7 Other osteomyelitis, ankle and foot; E11.51 Type 2 diabetes mellitus with diabetic peripheral angiopathy without gangrene; E11.43 Type 2 diabetes mellitus with diabetic autonomic (poly)neuropathy; E11.39 Type 2 diabetes mellitus with other diabetic ophthalmic complication; H42 Glaucoma in diseases classified elsewhere; R62.7 Adult failure to thrive; G89.29 Other chronic pain; I10 Essential (primary) hypertension; F41.9 Anxiety disorder, unspecified; Y83.5 Amputation of limb(s) as the cause of abnormal reaction of the patient, or of later complication, without mention of misadventure at the time of the procedure ==

== ENCOUNTER → 2020-11-25 | Outpatient (CLI) | payer OTHER ==
[~2020-11-25] VITALS: Ht 177.8 cm; Wt 108.9 kg
[~2020-11-25] MED LIST changes: +CULTURELLE KID1 EAC1 PO; +LOPERAMIDE 2 MG2 M1 PO; +MECLIZINE HCL25 M1 PO; +MILK OF MA400 MG/5 M PO; +MULTIPLE VITAM1 EAC2 PO; +NYSTATIN-TRIAMC15 GM TOP; +SEROQUEL 25 MG25 M1 PO; +TYLENOL; +VANCOCIN 125 M125 M1 PO; +ZINC SULFATE50 MG PO; +ZOLOFT50 M1 PO
[2020-11-25 12:14] LABS: ABSOLUTE BASOPHILS 0.1 thou/uL (0.0-0.2); ABSOLUTE EOSINOPHILS 0.7 thou/uL (0.0-0.7); ABSOLUTE LYMPHOCYTES 1.2 thou/uL (0.8-5.3); ABSOLUTE MONOCYTES 0.6 thou/uL (0.0-1.2); ABSOLUTE NEUTROPHILS 5.4 thou/uL (1.6-8.1); BASOPHILS 0.8 %; HEMATOCRIT 34.8 % (42.0-52.0); HEMOGLOBIN 11.6 gm/dL (14.0-18.0); LYMPHOCYTES 15.4 %; MCH 26.2 pg (26.0-34.0); MCHC 33.4 g/dL (28.0-37.0); MCV 78.4 fL (80.0-100.0); MONOCYTES 7.5 %; MPV 7.7 fl. (7.2-11.1); NUCLEATED RBCS 0 /100WBC; PLATELET COUNT* 300 thou/uL (150-400); POLYS 67.3 %; RBC 4.44 mil/uL (4.50-6.00); RDW-CV 18.3 % (10.5-14.5)
[2020-11-25 12:19] LABS: CREATININE 1.3 mg/dL (0.6-1.3); POTASSIUM 3.9 mmol/L (3.5-5.1)
[2020-11-25 12:21] LABS: URINE BILIRUBIN NEGATIVE (Negative); URINE BLOOD NEGATIVE (Negative); URINE CLARITY CLEAR; URINE COLOR YELLOW; URINE GLUCOSE-RANDOM NEGATIVE (Negative); URINE KETONES NEGATIVE (Negative); URINE LEUKOCYTES-REFLEX NEGATIVE (Negative); URINE NITRITE-REFLEX NEGATIVE (Negative); URINE PROTEIN NEGATIVE (Negative); URINE UROBILINOGEN 0.2 E.U./dl (0.2-1.0)
[2020-11-25 12:23] LABS: ALBUMIN 3.5 g/dL (3.4-5.0); MAGNESIUM 1.7 mg/dL (1.8-2.4); TOTAL BILIRUBIN 0.3 mg/dL (<0.1-1.0); TOTAL PROTEIN 7.2 g/dL (6.4-8.2)
--- NOTE | 2020-11-25 14:52 | EKG ---
[place] [address] ELECTROCARDIOGRAM REPORT Name: MINE QUESADA Room: [facility]#: [id number] Admission: 11/25/20 Attend Phys: FOR JulioJeremiDebora 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: CD : 1930 Requested By: Babita Friedman Order Number: [id number] MD: Reg Saenz Measurements Intervals Leonard Rate: 68 P: 49 WI: 198 QRS: 22 QRSD: 93 T: 83 QT: 439 QTc: 467 Interpretive Statements Sinus rhythm Atrial premature complex Abnormal R-wave progression, early transition Compared to ECG 07/08/2020 22:54:52 Atrial premature complex(es) now present Right ventricular hypertrophy no longer present T-wave abnormality no longer present Electronically Signed On 11-25-2020 14:52:46 CDT by Reg Saenz [email or web address] <ELECTRONICALLY SIGNED> By: Reg Saenz MD, FACC 11/25/20 1452 1216 1216 Reg Saenz MD, FAC /EPI
[2020-11-25 17:31] VITALS: BP 142/65
== END ==
LOC: M.ERS 09:38 → M.WC 09:38
PROVIDERS: Nurse Practitioner Family
DX: T87.89 Other complications of amputation stump (principal); E11.622 Type 2 diabetes mellitus with other skin ulcer; L97.526 Non-pressure chronic ulcer of other part of left foot with bone involvement without evidence of necrosis; E11.43 Type 2 diabetes mellitus with diabetic autonomic (poly)neuropathy; R62.7 Adult failure to thrive; I10 Essential (primary) hypertension; E11.39 Type 2 diabetes mellitus with other diabetic ophthalmic complication; H26.9 Unspecified cataract; G89.29 Other chronic pain; M54.9 Dorsalgia, unspecified; F41.9 Anxiety disorder, unspecified; Z79.84 Long term (current) use of oral hypoglycemic drugs; Z79.899 Other long term (current) drug therapy; Y83.5 Amputation of limb(s) as the cause of abnormal reaction of the patient, or of later complication, without mention of misadventure at the time of the procedure

== ENCOUNTER → 2020-12-02 | Outpatient (CLI) | payer OTHER | LOC: M.WC 09:48 | PROVIDERS: ATTEND Surgery | DX: T87.89 Other complications of amputation stump (principal); E11.621 Type 2 diabetes mellitus with foot ulcer; L97.526 Non-pressure chronic ulcer of other part of left foot with bone involvement without evidence of necrosis; E11.43 Type 2 diabetes mellitus with diabetic autonomic (poly)neuropathy; R62.7 Adult failure to thrive; I10 Essential (primary) hypertension; E11.39 Type 2 diabetes mellitus with other diabetic ophthalmic complication; H26.9 Unspecified cataract; G89.29 Other chronic pain; M54.9 Dorsalgia, unspecified; F41.9 Anxiety disorder, unspecified; Z79.84 Long term (current) use of oral hypoglycemic drugs; Y83.5 Amputation of limb(s) as the cause of abnormal reaction of the patient, or of later complication, without mention of misadventure at the time of the procedure ==

== ENCOUNTER → 2020-12-09 | Outpatient (CLI) | payer OTHER | LOC: M.WC 09:01 | PROVIDERS: ATTEND Surgery | DX: T87.89 Other complications of amputation stump (principal); E11.621 Type 2 diabetes mellitus with foot ulcer; L97.526 Non-pressure chronic ulcer of other part of left foot with bone involvement without evidence of necrosis; E11.43 Type 2 diabetes mellitus with diabetic autonomic (poly)neuropathy; R62.7 Adult failure to thrive; I10 Essential (primary) hypertension; E11.36 Type 2 diabetes mellitus with diabetic cataract; H26.9 Unspecified cataract; E11.69 Type 2 diabetes mellitus with other specified complication; M86.8X7 Other osteomyelitis, ankle and foot; G89.29 Other chronic pain; M54.9 Dorsalgia, unspecified; F41.9 Anxiety disorder, unspecified; Z79.84 Long term (current) use of oral hypoglycemic drugs; Y83.5 Amputation of limb(s) as the cause of abnormal reaction of the patient, or of later complication, without mention of misadventure at the time of the procedure ==

== ENCOUNTER → 2020-12-16 | Outpatient (CLI) | payer OTHER | LOC: M.WC 09:05 | PROVIDERS: ATTEND Surgery | DX: T87.89 Other complications of amputation stump (principal); E11.621 Type 2 diabetes mellitus with foot ulcer; L97.526 Non-pressure chronic ulcer of other part of left foot with bone involvement without evidence of necrosis; E11.43 Type 2 diabetes mellitus with diabetic autonomic (poly)neuropathy; R62.7 Adult failure to thrive; I10 Essential (primary) hypertension; E11.36 Type 2 diabetes mellitus with diabetic cataract; H26.9 Unspecified cataract; E11.69 Type 2 diabetes mellitus with other specified complication; M86.8X7 Other osteomyelitis, ankle and foot; G89.29 Other chronic pain; M54.9 Dorsalgia, unspecified; F41.9 Anxiety disorder, unspecified; Z79.84 Long term (current) use of oral hypoglycemic drugs; Y83.5 Amputation of limb(s) as the cause of abnormal reaction of the patient, or of later complication, without mention of misadventure at the time of the procedure ==

== ENCOUNTER → 2020-12-23 | Outpatient (CLI) | payer OTHER | LOC: M.WC 09:33 | PROVIDERS: ATTEND Surgery | DX: T87.89 Other complications of amputation stump (principal); E11.621 Type 2 diabetes mellitus with foot ulcer; L97.526 Non-pressure chronic ulcer of other part of left foot with bone involvement without evidence of necrosis; E11.43 Type 2 diabetes mellitus with diabetic autonomic (poly)neuropathy; R62.7 Adult failure to thrive; I10 Essential (primary) hypertension; E11.36 Type 2 diabetes mellitus with diabetic cataract; H26.9 Unspecified cataract; E11.69 Type 2 diabetes mellitus with other specified complication; M86.8X7 Other osteomyelitis, ankle and foot; G89.29 Other chronic pain; M54.9 Dorsalgia, unspecified; F41.9 Anxiety disorder, unspecified; Z79.84 Long term (current) use of oral hypoglycemic drugs; Y83.5 Amputation of limb(s) as the cause of abnormal reaction of the patient, or of later complication, without mention of misadventure at the time of the procedure ==

== ENCOUNTER → 2020-12-30 | Outpatient (CLI) | payer OTHER | LOC: M.WC 09:44 | PROVIDERS: ATTEND Surgery | DX: T87.89 Other complications of amputation stump (principal); E11.622 Type 2 diabetes mellitus with other skin ulcer; L97.522 Non-pressure chronic ulcer of other part of left foot with fat layer exposed; E11.43 Type 2 diabetes mellitus with diabetic autonomic (poly)neuropathy; R62.7 Adult failure to thrive; I10 Essential (primary) hypertension; E11.39 Type 2 diabetes mellitus with other diabetic ophthalmic complication; H42 Glaucoma in diseases classified elsewhere; G89.29 Other chronic pain; M54.9 Dorsalgia, unspecified; F41.9 Anxiety disorder, unspecified; Z79.899 Other long term (current) drug therapy; Z79.4 Long term (current) use of insulin; Y83.5 Amputation of limb(s) as the cause of abnormal reaction of the patient, or of later complication, without mention of misadventure at the time of the procedure ==

== ENCOUNTER → 2021-01-06 | Outpatient (CLI) | payer OTHER | LOC: M.WC 09:51 | PROVIDERS: ATTEND Surgery | DX: T87.89 Other complications of amputation stump (principal); E11.621 Type 2 diabetes mellitus with foot ulcer; L97.522 Non-pressure chronic ulcer of other part of left foot with fat layer exposed; E11.43 Type 2 diabetes mellitus with diabetic autonomic (poly)neuropathy; E11.39 Type 2 diabetes mellitus with other diabetic ophthalmic complication; H42 Glaucoma in diseases classified elsewhere; G89.29 Other chronic pain; I10 Essential (primary) hypertension; R62.7 Adult failure to thrive; M54.9 Dorsalgia, unspecified; F41.9 Anxiety disorder, unspecified; Z79.4 Long term (current) use of insulin; Y83.5 Amputation of limb(s) as the cause of abnormal reaction of the patient, or of later complication, without mention of misadventure at the time of the procedure ==

== ENCOUNTER → 2021-01-13 | Outpatient (CLI) | payer OTHER | LOC: M.WC 09:16 | PROVIDERS: ATTEND Surgery | DX: T87.89 Other complications of amputation stump (principal); E11.621 Type 2 diabetes mellitus with foot ulcer; L97.522 Non-pressure chronic ulcer of other part of left foot with fat layer exposed; E11.43 Type 2 diabetes mellitus with diabetic autonomic (poly)neuropathy; R62.7 Adult failure to thrive; E11.39 Type 2 diabetes mellitus with other diabetic ophthalmic complication; H42 Glaucoma in diseases classified elsewhere; G89.29 Other chronic pain; M54.9 Dorsalgia, unspecified; I10 Essential (primary) hypertension; F41.9 Anxiety disorder, unspecified; Z79.899 Other long term (current) drug therapy; Z79.4 Long term (current) use of insulin; Y83.5 Amputation of limb(s) as the cause of abnormal reaction of the patient, or of later complication, without mention of misadventure at the time of the procedure ==

== ENCOUNTER → 2021-01-20 | Outpatient (CLI) | payer OTHER | LOC: M.WC 09:40 | PROVIDERS: ATTEND Surgery | DX: T87.89 Other complications of amputation stump (principal); E11.621 Type 2 diabetes mellitus with foot ulcer; L97.522 Non-pressure chronic ulcer of other part of left foot with fat layer exposed; E11.43 Type 2 diabetes mellitus with diabetic autonomic (poly)neuropathy; R62.7 Adult failure to thrive; I10 Essential (primary) hypertension; E11.39 Type 2 diabetes mellitus with other diabetic ophthalmic complication; H42 Glaucoma in diseases classified elsewhere; G89.29 Other chronic pain; M54.9 Dorsalgia, unspecified; F41.9 Anxiety disorder, unspecified; Z79.84 Long term (current) use of oral hypoglycemic drugs; Z79.899 Other long term (current) drug therapy; Y83.5 Amputation of limb(s) as the cause of abnormal reaction of the patient, or of later complication, without mention of misadventure at the time of the procedure ==

== ENCOUNTER → 2021-01-27 | Outpatient (CLI) | payer OTHER | LOC: M.WC 09:14 | PROVIDERS: ATTEND Surgery | DX: T87.89 Other complications of amputation stump (principal); E11.621 Type 2 diabetes mellitus with foot ulcer; L97.522 Non-pressure chronic ulcer of other part of left foot with fat layer exposed; E11.43 Type 2 diabetes mellitus with diabetic autonomic (poly)neuropathy; R62.7 Adult failure to thrive; I10 Essential (primary) hypertension; E11.39 Type 2 diabetes mellitus with other diabetic ophthalmic complication; H42 Glaucoma in diseases classified elsewhere; G89.29 Other chronic pain; M54.9 Dorsalgia, unspecified; F41.9 Anxiety disorder, unspecified; Z79.84 Long term (current) use of oral hypoglycemic drugs; Y83.5 Amputation of limb(s) as the cause of abnormal reaction of the patient, or of later complication, without mention of misadventure at the time of the procedure ==

== ENCOUNTER → 2021-02-10 | Outpatient (CLI) | payer OTHER | LOC: M.WC 09:44 | PROVIDERS: ATTEND Surgery | DX: T87.89 Other complications of amputation stump (principal); E11.622 Type 2 diabetes mellitus with other skin ulcer; L97.522 Non-pressure chronic ulcer of other part of left foot with fat layer exposed; E11.43 Type 2 diabetes mellitus with diabetic autonomic (poly)neuropathy; R62.7 Adult failure to thrive; R21 Rash and other nonspecific skin eruption; E11.39 Type 2 diabetes mellitus with other diabetic ophthalmic complication; H42 Glaucoma in diseases classified elsewhere; G89.29 Other chronic pain; M54.9 Dorsalgia, unspecified; F41.9 Anxiety disorder, unspecified; Z79.4 Long term (current) use of insulin; Z79.899 Other long term (current) drug therapy; Y83.5 Amputation of limb(s) as the cause of abnormal reaction of the patient, or of later complication, without mention of misadventure at the time of the procedure ==

== ENCOUNTER → 2021-02-17 | Outpatient (CLI) | payer OTHER | LOC: M.WC 09:47 | PROVIDERS: ATTEND Surgery | DX: T87.89 Other complications of amputation stump (principal); E11.621 Type 2 diabetes mellitus with foot ulcer; L97.522 Non-pressure chronic ulcer of other part of left foot with fat layer exposed; E11.43 Type 2 diabetes mellitus with diabetic autonomic (poly)neuropathy; R62.7 Adult failure to thrive; R21 Rash and other nonspecific skin eruption; E11.39 Type 2 diabetes mellitus with other diabetic ophthalmic complication; H42 Glaucoma in diseases classified elsewhere; G89.29 Other chronic pain; M54.9 Dorsalgia, unspecified; F41.9 Anxiety disorder, unspecified; Z79.4 Long term (current) use of insulin; Y83.5 Amputation of limb(s) as the cause of abnormal reaction of the patient, or of later complication, without mention of misadventure at the time of the procedure ==

== ENCOUNTER 2021-02-23 19:50 | Emergency (ER) | payer OTHER ==
[~2021-02-23] VITALS: Ht 182.9 cm; Wt 90.7 kg
[2021-02-23] MEDS ORDERED: HYDROCODON-ACE1 EAC7 PO (21:03)
[2021-02-23 22:39] VITALS: BP 158/64
== END 2021-02-23 22:39 | disposition home or self-care (01) ==
LOC: M.ERS 19:50
DX: M25.562 Pain in left knee (principal); M25.512 Pain in left shoulder; I10 Essential (primary) hypertension; E11.40 Type 2 diabetes mellitus with diabetic neuropathy, unspecified; Z98.890 Other specified postprocedural states; Z90.89 Acquired absence of other organs; Z90.49 Acquired absence of other specified parts of digestive tract; Z79.84 Long term (current) use of oral hypoglycemic drugs; Z79.4 Long term (current) use of insulin; Z79.891 Long term (current) use of opiate analgesic; Z79.1 Long term (current) use of non-steroidal anti-inflammatories (NSAID); Z79.899 Other long term (current) drug therapy

== ENCOUNTER → 2021-03-03 | Outpatient (CLI) | payer OTHER | LOC: M.WC 09:35 | PROVIDERS: ATTEND Surgery | DX: T87.89 Other complications of amputation stump (principal); E11.621 Type 2 diabetes mellitus with foot ulcer; L97.522 Non-pressure chronic ulcer of other part of left foot with fat layer exposed; R21 Rash and other nonspecific skin eruption; E11.43 Type 2 diabetes mellitus with diabetic autonomic (poly)neuropathy; E11.39 Type 2 diabetes mellitus with other diabetic ophthalmic complication; H42 Glaucoma in diseases classified elsewhere; R62.7 Adult failure to thrive; G89.29 Other chronic pain; I10 Essential (primary) hypertension; M54.9 Dorsalgia, unspecified; F41.9 Anxiety disorder, unspecified; Z79.4 Long term (current) use of insulin; Y83.5 Amputation of limb(s) as the cause of abnormal reaction of the patient, or of later complication, without mention of misadventure at the time of the procedure ==

== ENCOUNTER → 2021-03-17 | Outpatient (CLI) | payer OTHER ==
[~2021-03-17] MED LIST changes: +ARTHRITIS PAIN650 M3 PO; +QUESTRAN PACKET4 GM PO
== END ==
LOC: M.WC 09:28
PROVIDERS: ATTEND Surgery
DX: T87.89 Other complications of amputation stump (principal); E11.621 Type 2 diabetes mellitus with foot ulcer; L97.522 Non-pressure chronic ulcer of other part of left foot with fat layer exposed; R21 Rash and other nonspecific skin eruption; E11.43 Type 2 diabetes mellitus with diabetic autonomic (poly)neuropathy; E11.39 Type 2 diabetes mellitus with other diabetic ophthalmic complication; H42 Glaucoma in diseases classified elsewhere; R62.7 Adult failure to thrive; G89.29 Other chronic pain; I10 Essential (primary) hypertension; M54.9 Dorsalgia, unspecified; F41.9 Anxiety disorder, unspecified; Z79.4 Long term (current) use of insulin; Y83.5 Amputation of limb(s) as the cause of abnormal reaction of the patient, or of later complication, without mention of misadventure at the time of the procedure

== ENCOUNTER 2021-03-18 14:57 | Emergency (ER) | payer OTHER ==
[~2021-03-18] VITALS: Ht 177.8 cm; Wt 104.3 kg
[~2021-03-18 14:57] MED LIST changes: -ARTHRITIS PAIN650 M3 PO; -QUESTRAN PACKET4 GM PO
[2021-03-18] MEDS ORDERED: ARTHRITIS PAIN650 M3 PO (15:03)
[2021-03-18] MEDS ORDERED: QUESTRAN PACKET4 GM PO (15:05)
[2021-03-18 15:19] LABS: ABSOLUTE BASOPHILS 0.1 thou/uL (0.0-0.2); ABSOLUTE EOSINOPHILS 0.4 thou/uL (0.0-0.7); ABSOLUTE LYMPHOCYTES 1.3 thou/uL (0.8-5.3); ABSOLUTE MONOCYTES 0.7 thou/uL (0.0-1.2); BASOPHILS 0.9 %; HEMATOCRIT 41.4 % (42.0-52.0); HEMOGLOBIN 13.4 gm/dL (14.0-18.0); LYMPHOCYTES 17.7 %; MCHC 32.3 g/dL (28.0-37.0); MCV 77.5 fL (80.0-100.0); MONOCYTES 9.1 %; MPV 7.8 fl. (7.2-11.1); NUCLEATED RBCS 0 /100WBC; PLATELET COUNT* 311 thou/uL (150-400); POLYS 67.3 %; RBC 5.34 mil/uL (4.50-6.00); RDW-CV 16.3 % (10.5-14.5); WBC 7.4 thou/uL (4.0-11.0)
[2021-03-18 15:24] LABS: URINE BILIRUBIN NEGATIVE (Negative); URINE BLOOD NEGATIVE (Negative); URINE CLARITY CLEAR; URINE COLOR YELLOW; URINE GLUCOSE-RANDOM NEGATIVE (Negative); URINE KETONES NEGATIVE (Negative); URINE LEUKOCYTES NEGATIVE (Negative); URINE NITRITE NEGATIVE (Negative); URINE PROTEIN NEGATIVE (Negative); URINE UROBILINOGEN 0.2 E.U./dl (0.2-1.0)
[2021-03-18 15:34] LABS: CALCIUM 9.1 mg/dL (8.5-10.1); CREATININE 1.5 mg/dL (0.6-1.3); POTASSIUM 3.8 mmol/L (3.5-5.1)
[2021-03-18 15:39] LABS: ALBUMIN 3.3 g/dL (3.4-5.0); TOTAL BILIRUBIN 0.2 mg/dL (<0.1-1.0); TOTAL PROTEIN 7.1 g/dL (6.4-8.2)
--- NOTE | 2021-03-18 16:17 | EKG ---
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: : 1930 Requested By: Nic Weiss Order Number: [id number] MD: Reg Saenz Measurements Intervals [place] Rate: 76 P: 56 DC: 194 QRS: 5 QRSD: 73 T: 104 QT: 550 QTc: 619 Interpretive Statements Sinus rhythm Borderline repolarization abnormality Prolonged QT interval Baseline wander in lead(s) I,III,aVL,aVF,V1,V2,V3,V4,V5,V6 Compared to ECG 11/25/2020 12:16:40 Prolonged QT interval now present Atrial premature complex(es) no longer present Electronically Signed On 03-18-2021 16:17:08 GUEST RELATION OFFICER by Reg Saenz [email or web address] <ELECTRONICALLY SIGNED> By: Reg Saenz MD, [facility] 03/18/21 1617 09 151 Reg Saenz MD, [facility] /EPI
[2021-03-18 18:50] VITALS: BP 162/71
== END 2021-03-18 18:52 ==
LOC: M.ERS 14:57
PROVIDERS: Emergency Medicine
DX: S09.90XA Unspecified injury of head, initial encounter (principal); Z20.822 Contact with and (suspected) exposure to COVID-19; E86.0 Dehydration; I73.9 Peripheral vascular disease, unspecified; E11.9 Type 2 diabetes mellitus without complications; I10 Essential (primary) hypertension; G62.9 Polyneuropathy, unspecified; Z90.49 Acquired absence of other specified parts of digestive tract; Z98.890 Other specified postprocedural states; Z79.84 Long term (current) use of oral hypoglycemic drugs; Z79.891 Long term (current) use of opiate analgesic; Z79.899 Other long term (current) drug therapy; W06.XXXA Fall from bed, initial encounter; Y93.89 Activity, other specified; Y92.89 Other specified places as the place of occurrence of the external cause; Y99.8 Other external cause status

== ENCOUNTER → 2021-03-31 | Outpatient (CLI) | payer OTHER ==
[~2021-03-31] MED LIST changes: +ARTHRITIS PAIN650 M3 PO; +QUESTRAN PACKET4 GM PO
== END ==
LOC: M.WC 09:12
PROVIDERS: ATTEND Surgery
DX: T87.89 Other complications of amputation stump (principal); E11.621 Type 2 diabetes mellitus with foot ulcer; L97.522 Non-pressure chronic ulcer of other part of left foot with fat layer exposed; R21 Rash and other nonspecific skin eruption; E11.43 Type 2 diabetes mellitus with diabetic autonomic (poly)neuropathy; E11.39 Type 2 diabetes mellitus with other diabetic ophthalmic complication; H42 Glaucoma in diseases classified elsewhere; R62.7 Adult failure to thrive; G89.29 Other chronic pain; I10 Essential (primary) hypertension; M54.9 Dorsalgia, unspecified; F41.9 Anxiety disorder, unspecified; Z79.4 Long term (current) use of insulin; Y83.5 Amputation of limb(s) as the cause of abnormal reaction of the patient, or of later complication, without mention of misadventure at the time of the procedure

== ENCOUNTER → 2021-04-07 | Outpatient (CLI) | payer OTHER | LOC: M.WC 08:39 | PROVIDERS: ATTEND Surgery | DX: T87.89 Other complications of amputation stump (principal); E11.621 Type 2 diabetes mellitus with foot ulcer; L97.522 Non-pressure chronic ulcer of other part of left foot with fat layer exposed; R21 Rash and other nonspecific skin eruption; E11.43 Type 2 diabetes mellitus with diabetic autonomic (poly)neuropathy; E11.39 Type 2 diabetes mellitus with other diabetic ophthalmic complication; H42 Glaucoma in diseases classified elsewhere; R62.7 Adult failure to thrive; G89.29 Other chronic pain; I10 Essential (primary) hypertension; M54.9 Dorsalgia, unspecified; F41.9 Anxiety disorder, unspecified; Z79.4 Long term (current) use of insulin; Y83.5 Amputation of limb(s) as the cause of abnormal reaction of the patient, or of later complication, without mention of misadventure at the time of the procedure ==

== ENCOUNTER 2021-04-08 06:22 | Emergency (ER) | payer OTHER ==
[~2021-04-08] VITALS: Ht 172.7 cm; Wt 81.7 kg
[2021-04-08 07:00] LABS: ABSOLUTE BASOPHILS 0.1 thou/uL (0.0-0.2); ABSOLUTE EOSINOPHILS 0.3 thou/uL (0.0-0.7); ABSOLUTE LYMPHOCYTES 1.6 thou/uL (0.8-5.3); ABSOLUTE MONOCYTES 0.8 thou/uL (0.0-1.2); ABSOLUTE NEUTROPHILS 6.6 thou/uL (1.6-8.1); BASOPHILS 0.6 %; EOSINOPHILS 2.8 %; HEMATOCRIT 42.8 % (42.0-52.0); HEMOGLOBIN 13.9 gm/dL (14.0-18.0); MCHC 32.5 g/dL (28.0-37.0); MCV 76.9 fL (80.0-100.0); MONOCYTES 8.4 %; MPV 7.8 fl. (7.2-11.1); NUCLEATED RBCS 0 /100WBC; PLATELET COUNT* 313 thou/uL (150-400); POLYS 71.2 %; RBC 5.57 mil/uL (4.50-6.00); RDW-CV 17.3 % (10.5-14.5); WBC 9.3 thou/uL (4.0-11.0)
[2021-04-08 07:08] LABS: CALCIUM 9.4 mg/dL (8.5-10.1); CREATININE 1.6 mg/dL (0.6-1.3)
[2021-04-08 07:12] LABS: ALBUMIN 3.5 g/dL (3.4-5.0); TOTAL BILIRUBIN 0.5 mg/dL (<0.1-1.0); TOTAL PROTEIN 7.7 g/dL (6.4-8.2)
[2021-04-08 07:31] LABS: URINE BILIRUBIN NEGATIVE (Negative); URINE BLOOD NEGATIVE (Negative); URINE CLARITY CLEAR; URINE COLOR YELLOW; URINE GLUCOSE-RANDOM NEGATIVE (Negative); URINE KETONES NEGATIVE (Negative); URINE LEUKOCYTES-REFLEX NEGATIVE (Negative); URINE NITRITE-REFLEX NEGATIVE (Negative); URINE PROTEIN NEGATIVE (Negative); URINE SPECIFIC GRAVITY 1.025 (1.005-1.030); URINE UROBILINOGEN 0.2 E.U./dl (0.2-1.0)
[2021-04-08 08:03] LABS: AMP/METHAMP Negative (Negative); BARBITURATES Negative (Negative); BENZODIAZEPINES Negative (Negative); COCAINE Negative (Negative); METHADONE Negative (Negative); OPIATES POSITIVE (Negative); PCP Negative (Negative); THC Negative (Negative)
[2021-04-08 08:03] LABS: ALCOHOL < 10 mg/dL (<10); SALICYLATE < 2.8 mg/dL (2.8-20.0)
[2021-04-08 08:04] LABS: ACETAMINOPHEN 2 ug/mL (10-30)
[2021-04-08 11:33] VITALS: BP 135/62
--- NOTE | 2021-04-08 13:01 | EKG ---
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: : 1930 Requested By: Yvette Mcginnis Order Number: [id number] MD: Zheng Trujillo Measurements Intervals [place] Rate: 82 P: 50 TN: 179 QRS: 0 QRSD: 94 T: 114 QT: 399 QTc: 466 Interpretive Statements Sinus rhythm early transition Nonspecific T abnormalities, lateral leads Compared to ECG 03/18/2021 15:10:12 Prolonged QT interval no longer present Electronically Signed On 04-08-2021 13:00:57 ARMHOLE FELLER HANDSTITCHING MACHINE by Zheng Trujillo [email or web address] <ELECTRONICALLY SIGNED> By: Zheng Trujillo MD, [facility] 04/08/21 1300 2 2 Zheng Trujillo MD, [facility] /EPI
== END 2021-04-08 11:34 | disposition home or self-care (01) ==
LOC: M.ERS 06:22
PROVIDERS: Emergency Medicine Emergency Medical Services; Personal Emergency Response Attendant
DX: U07.1 COVID-19 (principal); R44.1 Visual hallucinations; R45.1 Restlessness and agitation; E11.9 Type 2 diabetes mellitus without complications; I10 Essential (primary) hypertension; F03.90 Unspecified dementia, unspecified severity, without behavioral disturbance, psychotic disturbance, mood disturbance, and anxiety; Z79.899 Other long term (current) drug therapy